=== PATIENT | male | born 1970 | race American Indian/Alaskan Native ===

== ENCOUNTER 2018-07-07 10:56 | Emergency (ER) | payer OTHER ==
[2018-07-07 11:02] VITALS: RESP 18
[2018-07-07] MEDS ORDERED: Sodium Chloride 0.9% 1,000 ML IV ONE (11:32)
[2018-07-07] MEDS ORDERED: Sodium Chloride 0.9% 1,000 ML ONE (11:40)
--- NOTE | 2018-07-07 11:46 | C.PDOC ---
History Of Present Illness 47 year old male presents to ED with complaint of 3 year history of abdominal pain that has worsened over the past several days. Patient states that he has had this belly pain for the past 3 years and has gone to hospitals for it in the past. Patient states he is unable to work because of this pain. Patient has no PSHx and no PMHx. Patient also complains of diarrhea. Patient also notes that 1 month ago he had bloody stool, but it may have been due to the red punch he was drinking. Patient denies vomiting, back pain, nausea, and fever. Time Seen by Provider: 07/07/18 11:11 Chief Complaint (Nursing): Abdominal Pain History Per: Patient History/Exam Limitations: no limitations Onset/Duration Of Symptoms: Days Current Symptoms Are (Timing): Still Present Location Of Pain/Discomfort: Diffuse Radiation Of Pain To:: None Quality Of Discomfort: "Pain" Associated Symptoms: Diarrhea. denies: Fever, Chills, Nausea, Vomiting, Back Pain Exacerbating Factors: Walking Alleviating Factors: None Past Medical History Reviewed: Historical Data, Nursing Documentation, Vital Signs Vital Signs: Last Vital Signs Temp 97.8 F 07/07/18 10:58 Pulse 50 L 07/07/18 10:58 Resp 18 07/07/18 10:58 BP 112/74 07/07/18 10:58 Pulse Ox 100 07/07/18 10:58 - Medical History PMH: Pulmonary Embolism Surgical History: No Surg Hx Family History: States: Unknown Family Hx - Social History Hx Alcohol Use: Yes Hx Substance Use: No - Immunization History Hx Tetanus Toxoid Vaccination: No Hx Pneumococcal Vaccination: No Review Of Systems Constitutional: Negative for: Fever, Chills Gastrointestinal: Positive for: Abdominal Pain, Diarrhea. Negative for: Nausea, Vomiting Genitourinary: Negative for: Dysuria Musculoskeletal: Negative for: Back Pain Physical Exam - Physical Exam Appears: Non-toxic, No Acute Distress Skin: Normal Color, Warm, Dry, No Rash Head: Atraumatic, Normacephalic Eye(s): bilateral: Normal Inspection Oral Mucosa: Moist Throat: No Erythema, No Exudate Neck: Normal ROM, Supple Chest: Symmetrical, No Deformity Cardiovascular: Rhythm Regular, No Friction Rub, No Murmur Respiratory: Normal Breath Sounds, No Accessory Muscle Use, No Rales, No Rhonchi, No Wheezing Gastrointestinal/Abdominal: Soft, No Tenderness, No Distention, No Guarding, No Rebound Back: Normal Inspection, No CVA Tenderness Extremity: Capillary Refill (<2 seconds), No Swelling Neurological/Psych: Oriented x3, Normal Speech, Normal Cognition, Normal Motor ED Course And Treatment - Laboratory Results Result Diagrams: 07/07/18 12:26 07/07/18 12:26 O2 Sat by Pulse Oximetry: 100 (in RA) Pulse Ox Interpretation: Normal - CT Scan/US Abdomen/Pelvis CT Other Rad Studies (CT/US): Interpreted By Me, Read By Radiologist CT/US Interpretation: IMPRESSION: Possible mural thickening and luminal narrowing involving the ascending colon. Questionable intussusception of bowel loops along the ascending colon as well. Recommend repeat examination with oral contrast. Against Medical Advice - AMA Patient Left Against Medical Advice: The patient declines admission to the hospital and wishes to leave the Emergency Department. This action is against my medical advice. This decision was made with informed refusal. The patient was told that admission to the hospital is necessary. Explanation of the reasons why were discussed. The risks of leaving were explained to the patient and include, but are not limited to, worsening of known or currently unknown conditions, permanent disability and from undiagnosed or untreated conditions. The patient has the capacity to make this informed decision and understands my explanation of the current medical problem and risks of leaving. The patient voluntarily accepts these risks and signed an AMA form documenting our conversation. The patient was given the opportunity to ask questions and reconsider. The patient was encouraged to return to the Emergency Department at any time for further care. Medical Decision Making Medical Decision Making: Plan: Abdomen/Pelvis CT ordered for patient CMP CBC UA Patient given Toradol and IV fluids The results were discussed with the patient and was strongly informed to be admitted for surgery consult. The patient states that he is not able to stay and wants to be discharged. Copies of the results were given to the patient. On re-exam, the patient reports improvement of symptoms. Lungs are CTA, heart is RRR, abdomen is soft, non-tender and tolerating PO well. Pt is ambulatory in the ED with steady gait. Follow up with the medical doctor within 1-2 days. Return if worsened. Disposition - Disposition Referrals: [facility] [Outside] [facility] [Outside] Disposition: AGAINST MEDICAL ADVICE Disposition Time: 15:51 Condition: FAIR Additional Instructions: RETURN TO THE ED SOON POSSIBLE IF THERE IS ANY WORSENING. Instructions: Acute Abdomen (Belly Pain), Adult (DC) Forms: [facility] (Czech) - Clinical Impression Clinical Impression: Intussusception, Abdominal pain - PA / RUBY DEVELOPER / Resident Statement MD/DO has reviewed & agrees with the documentation as recorded. (Maty Bynum) - Scribe Statement The provider has reviewed the documentation as recorded by the Scribe (Maty Bynum) All medical record entries made by the Scribe were at my direction and personally dictated by me. I have reviewed the chart and agree that the record accurately reflects my personal performance of the history, physical exam, medical decision making, and the department course for this patient. I have also personally directed, reviewed, and agree with the discharge instructions and disposition.
[2018-07-07 12:34] LABS: WHITE BLOOD COUNT 4.6 K/uL (4.8-10.8)
[2018-07-07 12:46] LABS: HEMOGLOBIN 14.5 g/dL (12.0-18.0); MEAN CORPUSCULAR HEMOGLOBIN 30.6 pg (27.0-31.0); MEAN PLATELET VOLUME 7.9 fL (7.2-11.7); RBC 4.72 Mil/uL (4.40-5.90); RED CELL DISTRIBUTION WIDTH 13.6 % (11.5-14.5)
[2018-07-07 12:47] LABS: ALB/GLOB RATIO 1.4 (1.0-2.1); ALBUMIN 3.9 g/dL (3.5-5.0); ALT/SGPT 15 U/L (21-72); AST/SGOT 17 U/L (17-59); BLOOD UREA NITROGEN 6 mg/dL (9-20); CALCIUM 9.2 mg/dl (8.6-10.4); GFR NON-AFRICAN AMERICAN > 60; LIPASE 108 U/L (23-300)
[2018-07-07 12:59] LABS: URINE BILIRUBIN NEGATIVE (NEGATIVE); URINE BLOOD NEGATIVE (NEGATIVE); URINE CLARITY Clear (Clear); URINE COLOR YELLOW (YELLOW); URINE GLUCOSE (UA) NEGATIVE (Normal); URINE LEUKOCYTE ESTERASE NEGATIVE Leu/uL (Negative); URINE PROTEIN NEGATIVE (NEGATIVE); URINE UROBILINOGEN 0.2 mg/dL (0.2-1.0)
[2018-07-07 13:07] LABS: EOS # 0.1 K/uL (0.0-0.7); LYMPH # 1.5 K/uL (1.0-4.3); MONO # 0.6 K/uL (0.0-0.8); NEUT # 2.4 K/uL (1.8-7.0)
[2018-07-07] MEDS ORDERED: Iodixanol 320 MG/ML 100 ML BOTTLE IV ONE (13:38)
[2018-07-07 14:29] VITALS: BP 115/64; PULSE 44; TEMP 98
--- NOTE | 2018-07-07 15:08 | CT ---
Date of service: 07/07/2018 PROCEDURE: CT Abdomen and Pelvis with contrast HISTORY: lower abd pain, diarrhea COMPARISON: None. TECHNIQUE: Contrast dose: Radiation dose: Total exam DLP = 444.07 mGy-cm. This CT exam was performed using one or more of the following dose reduction techniques: Automated exposure control, adjustment of the mA and/or kV according to patient size, and/or use of iterative reconstruction technique. FINDINGS: LOWER THORAX: Unremarkable. LIVER: Scattered hepatic cysts. GALLBLADDER AND BILE DUCTS: Unremarkable. PANCREAS: Unremarkable. No gross lesion or ductal dilatation. SPLEEN: Unremarkable. ADRENALS: Unremarkable. No mass. KIDNEYS AND URETERS: Unremarkable. No hydronephrosis. No solid mass. VASCULATURE: Unremarkable. No aortic aneurysm. No aortic atherosclerotic calcification or mural plaque present. BOWEL: Possible mural thickening and luminal narrowing involving the ascending colon. Questionable intussusception of bowel loops along the ascending colon as well. Recommend repeat examination with oral contrast. APPENDIX: Normal appendix. PERITONEUM: Unremarkable. No free fluid. No free air. LYMPH NODES: Unremarkable. No enlarged lymph nodes. BLADDER: Unremarkable. REPRODUCTIVE: Unremarkable. BONES: No acute fracture. OTHER FINDINGS: None. IMPRESSION: Possible mural thickening and luminal narrowing involving the ascending colon. Questionable intussusception of bowel loops along the ascending colon as well. Recommend repeat examination with oral contrast.
[2018-07-07 15:18] VITALS: O2SAT 100
== END 2018-07-07 16:20 | disposition left against medical advice (07) ==
LOC: C.ER 10:56
DX: K56.1 Intussusception (principal); R10.9 Unspecified abdominal pain
CPT/HCPCS: 74177; 80053; 81001; 83690; 85025; 96361; 96374; 99284; J1885; J7030; Q9967

== ENCOUNTER 2018-07-08 10:14 | Inpatient (IN) | payer OTHER ==
--- NOTE | 2018-07-08 10:46 | C.PDOC ---
History Of Present Illness 47-year-old male presents to the ED for evaluation of abdominal pain which began several days ago. Patient was evaluated in this ED for similar complaint yesterday and underwent a CT scan with IV contrast only. As per CT results, annita clark was found to have questionable intusseption of bowel loops and was recommended to undergo repeat CT scan with PO contrast. Patient did not wait for surgical consult and signed out against medical advice. Patient returns to the ED today because his pain has persisted. He denies fever, chills, vomiting, diarrhea. Time Seen by Provider: 07/08/18 10:46 Chief Complaint (Nursing): Abdominal Pain History Per: Patient History/Exam Limitations: no limitations Onset/Duration Of Symptoms: Days, Persistent Current Symptoms Are (Timing): Still Present Quality Of Discomfort: "Pain" Associated Symptoms: denies: Fever, Chills, Vomiting, Diarrhea Additional History Per: Patient Past Medical History Reviewed: Historical Data, Nursing Documentation, Vital Signs Vital Signs: Last Vital Signs Temp 98.6 F 07/08/18 10:22 Pulse 72 07/08/18 10:22 Resp 20 07/08/18 10:22 BP 114/60 07/08/18 10:22 Pulse Ox 97 07/08/18 10:22 - Medical History PMH: Pulmonary Embolism Surgical History: No Surg Hx Family History: States: Unknown Family Hx - Social History Hx Alcohol Use: Yes Hx Substance Use: Yes - Immunization History Hx Tetanus Toxoid Vaccination: No Hx Influenza Vaccination: No Hx Pneumococcal Vaccination: No Review Of Systems Constitutional: Negative for: Fever, Chills Gastrointestinal: Positive for: Abdominal Pain. Negative for: Vomiting, Diarrh ea Physical Exam - Physical Exam Appears: Non-toxic, No Acute Distress Skin: Normal Color, Warm, Dry Head: Atraumatic, Normacephalic Eye(s): bilateral: Normal Inspection Oral Mucosa: Moist Neck: Supple Chest: Symmetrical, No Deformity, No Tenderness Cardiovascular: Rhythm Regular, No Murmur Respiratory: Normal Breath Sounds, No Rales, No Rhonchi, No Wheezing Gastrointestinal/Abdominal: Soft, Tenderness (mild, periumbilical ), No Guarding, No Rebound Extremity: Normal ROM, Capillary Refill (less than 2 seconds ) Neurological/Psych: Oriented x3, Normal Speech, Normal Cognition ED Course And Treatment - Laboratory Results Result Diagrams: 07/08/18 11:20 07/08/18 11:20 O2 Sat by Pulse Oximetry: 97 (on RA) Pulse Ox Interpretation: Normal Progress Note: Bloodwork, urinalysis, CT A/P with PO contrast only ordered and reviewed. Protonix IVP and IV Fluids given. Disposition - Disposition Disposition: HOSPITALIZED Disposition Time: 16:04 Condition: FAIR Forms: [facility] (Thai) - Clinical Impression Clinical Impression: Abdominal pain, Mass of cecum - PA / BOOKKEEPING MANAGER / Resident Statement MD/DO has reviewed & agrees with the documentation as recorded. - Scribe Statement The provider has reviewed the documentation as recorded by the Scribe (Emely Berg) All medical record entries made by the Scribe were at my direction and personally dictated by me. I have reviewed the chart and agree that the record accurately reflects my personal performance of the history, physical exam, medical decision making, and the department course for this patient. I have also personally directed, reviewed, and agree with the discharge instructions and disposition. Decision To Admit - Pt Status Changed To: Hospital Disposition Of: Observation - . Bed Request Type: Regular Admitting Physician: Madelaine Koenig Patient Diagnosis: Abdominal pain, Mass of cecum
[2018-07-08] MEDS ORDERED: Sodium Chloride 0.9% 1,000 ML IV STA (10:50)
[2018-07-08] MEDS ORDERED: Iohexol 240 (50 ml) PO STA (10:50)
[2018-07-08 11:02] LABS: VENOUS BLOOD GAS BASE EXCESS 0.3 mmol/L (0.0-2.0); VENOUS BLOOD GAS PCO2 48 mmHg (40-60); VENOUS BLOOD GAS PO2 32 mm/Hg (30-55); VENOUS BLOOD PH 7.35 (7.32-7.43)
[2018-07-08 11:28] LABS: MEAN CELL VOLUME 91.4 fL (80.0-94.0); RBC 4.41 Mil/uL (4.40-5.90); WHITE BLOOD COUNT 3.6 K/uL (4.8-10.8)
[2018-07-08] MEDS ORDERED: Iohexol 240 (50 ml) ONE (11:35)
[2018-07-08 11:36] LABS: HEMOGLOBIN 13.7 g/dL (12.0-18.0); MEAN CORPUSCULAR HGB CONC 33.9 g/dL (33.0-37.0); MEAN PLATELET VOLUME 7.7 fL (7.2-11.7); RED CELL DISTRIBUTION WIDTH 13.4 % (11.5-14.5)
[2018-07-08 11:44] LABS: ALB/GLOB RATIO 1.4 (1.0-2.1); ALBUMIN 3.6 g/dL (3.5-5.0); ALT/SGPT 12 U/L (21-72); AST/SGOT 17 U/L (17-59); BLOOD UREA NITROGEN 6 mg/dL (9-20); CALCIUM 9.1 mg/dl (8.6-10.4); GFR NON-AFRICAN AMERICAN > 60; LIPASE 149 U/L (23-300)
[2018-07-08 12:33] LABS: LYMPH # 0.9 K/uL (1.0-4.3); MONO # 0.3 K/uL (0.0-0.8); NEUT # 2.5 K/uL (1.8-7.0)
[2018-07-08 12:56] LABS: SQUAMOUS EPITHIAL < 1 /hpf (0-5); URINE BILIRUBIN NEGATIVE (NEGATIVE); URINE BLOOD NEGATIVE (NEGATIVE); URINE CLARITY Clear (Clear); URINE COLOR Yellow (YELLOW); URINE GLUCOSE (UA) NORMAL (Normal); URINE LEUKOCYTE ESTERASE NEG Leu/uL (Negative); URINE PROTEIN NEGATIVE (NEGATIVE); URINE UROBILINOGEN NORMAL mg/dL (0.2-1.0)
[2018-07-08 13:14] LABS: BARBITURATES, UR NEGATIVE (NEGATIVE); BENZODIAZEPINES, UR NEGATIVE (NEGATIVE); OPIATES, UR NEGATIVE (NEGATIVE); PHENCYCLIDINE, UR NEGATIVE (NEGATIVE)
--- NOTE | 2018-07-08 15:15 | CT ---
Date of service: 07/08/2018 PROCEDURE: CT Abdomen and Pelvis with contrast HISTORY: Abdominal pain COMPARISON: 07/07/2018. TECHNIQUE: CT scan of the abdomen and pelvis was performed without administration of intravenous contrast. Oral contrast was administered. Coronal and sagittal reformatted images were obtained. Contrast dose: Radiation dose: Total exam DLP = 273.19 mGy-cm. This CT exam was performed using one or more of the following dose reduction techniques: Automated exposure control, adjustment of the mA and/or kV according to patient size, and/or use of iterative reconstruction technique. FINDINGS: LOWER THORAX: The visualized right lung is clear. There is subsegmental atelectasis in the left lung base. LIVER: Normal in size with homogeneous enhancement. There are scattered tiny low-attenuation lesions in the liver too small to characterize on noncontrast CT examination. There is a stable 2.1 cm simple cyst in the subcapsular anterior right hepatic lobe. No gross lesion or ductal dilatation. GALLBLADDER AND BILE DUCTS: Gallbladder is partially contracted. No calcified gallstones, wall thickening or pericholecystic fluid. PANCREAS: Normal in size with homogeneous enhancement. No gross lesion or ductal dilatation. SPLEEN: Normal in size and appearance. ADRENALS: No discrete nodule. KIDNEYS AND URETERS: Normal in size with homogeneous enhancement. There is a stable simple cysts in the upper pole of the left kidney. No hydronephrosis. VASCULATURE: No aortic aneurysm. There are no aortic atherosclerotic calcifications or mural plaque present. BOWEL: Evaluation of the bowel is limited in the absence of oral contrast. The small bowel loops are normal in caliber. There is a large 5.4 x 6.8 x 7.9 cm hyperdense intraluminal mass in the cecum. APPENDIX: Normal appendix. PERITONEUM: No free fluid. No free air. LYMPH NODES: No enlarged lymph nodes. BLADDER: Partially decompressed. REPRODUCTIVE: The prostate gland is normal in size. BONES: No acute fracture. There is mild degenerative disc disease at L5-S1. OTHER FINDINGS: None. IMPRESSION: Large intraluminal mass in the cecum which may represent a large polyp or neoplasm. Histopathologic correlation is recommended.
[2018-07-08] MEDS ORDERED: Morphine 4 MG/ML VIAL ONE (15:49)
--- NOTE | 2018-07-08 16:46 | CP.PCM.HP ---
<Abner Garrett E - Last Filed: 07/08/18 18:03> History of Present Illness - History of Present Illness History of Present Illness: CC: Abdominal Pain HPI: Patient is a 47 year old male with past medical Stage 4 hemorrhoid, sickle cell trait and PE (2011), who presents to the ED with complaints of diffuse intermittent mid-abdominal pain that has been ongoing for 3 years. Patient describes the pain as a 10/10 "punching feeling" that is intermittent and localized to the mid-abdominal and more towards the right side. Patient reports whenever he gets the pain, he exercises (running, jogging, core strengthening) in order to get rid of the pain; "it is like the pain is telling me to run". In addition, patient intermittently takes OTC Tylenol and ASA for pain control. He reports that he has not been able to keep food down regularly for the past 2 years and believes he has lost approximately 20-25 lbs unintentionally over the past 3 years. P. Patient admits to diarrhea (different caliber of stool) every weekend for the past 1 year, especially after meals and noted bloating after intake of spicy foods. Patient admits to intermittent hematochezia (bloody stool and blood in the toilet bowl) and increase urinary urgency. Upon ROS, patient admits to progressive fatigue and dizziness but denies fever, chills, nausea, vomiting, chest pain, palpitations, shortness of breath. Patient states that he was seen at [facility] approximately 2 years ago and nothing was found on exam or diagnostic work-up. 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 Admits to cigarettes use (since age 25, 1/2PPD), occasional marijuana use and ETOH on weekends (Usually wine) Present on Admission - Present on Admission Any Indicators Present on Admission: Yes History of DVT/PE: Yes Review of Systems - Constitutional Constitutional: Fatigue, Weight Loss, Weakness. absent: Chills, Excessive Sweating, Fever, Headache, Increased Appetite - EENT Eyes: absent: Blurred Vision, Change in Vision Nose/Mouth/Throat: absent: Dysphagia - Cardiovascular Cardiovascular: Lightheadedness. absent: Chest Pain, Chest Pain at Rest, Dyspne a, Dyspnea on Exertion, Orthopnea, Palpitations - Gastrointestinal Gastrointestinal: Abdominal Pain, Bloating, Change in Bowel Habits, Change in Stool Character, Diarrhea, Hematochezia. absent: Excessive Flatus, Fecal Incontinence, Hematemesis, Nausea, Odynophagia, Vomiting - Genitourinary Genitourinary: Urinary Urgency - Musculoskeletal Musculoskeletal: absent: Back Pain, Joint Swelling, Numbness, Stiffness, Tingling - Integumentary Integumentary: absent: Jaundice - Neurological Neurological: Dizziness, Weakness. absent: Syncope - Endocrine Endocrine: Fatigue. absent: Palpitations Past Patient History - Past Social History Smoking Status: Light Smoker < 10 Cigarettes Daily - PULMONARY Hx Pulmonary Embolism: Yes - GASTROINTESTINAL Hx Hemorrhoids: Yes Other/Comment: abdominal pain x 3yrs - PSYCHIATRIC Hx Substance Use: Yes - SURGICAL HISTORY Hx Surgeries: Yes Hx Herniorrhaphy: Yes - ANESTHESIA Hx Anesthesia: Yes Hx Anesthesia Reactions: No Meds Allergies/Adverse Reactions: Allergies Allergy/AdvReac Type Severity Reaction Status Date / Time No Known Allergies Allergy Verified 07/07/18 11:02 Physical Exam - Constitutional Appears: Non-toxic, No Acute Distress - Head Exam Head Exam: ATRAUMATIC, NORMAL INSPECTION - Eye Exam Eye Exam: EOMI, Normal appearance. absent: Scleral icterus Pupil Exam: NORMAL ACCOMODATION - ENT Exam ENT Exam: Mucous Membranes Moist - Respiratory Exam Respiratory Exam: Clear to Auscultation Bilateral, NORMAL BREATHING PATTERN. absent: Decreased Breath Sounds, Prolonged Expiratory Phase, Rales, Rhonchi, Wheezes, Respiratory Distress - Cardiovascular Exam Cardiovascular Exam: REGULAR RHYTHM, +S1, +S2. absent: Tachycardia, Systolic Murmur - GI/Abdominal Exam GI & Abdominal Exam: Normal Bowel Sounds, Soft, Tenderness Additional comments: Tenderness to palpation of the mid-abdomen (R>L) with mild guarding - Rectal Exam Rectal Exam: absent: Bloody Stool, Hemorrhoids, Fecal Impaction - Extremities Exam Extremities exam: Positive for: normal inspection. Negative for: calf tenderness, pedal edema - Back Exam Back exam: NORMAL INSPECTION - Neurological Exam Neurological exam: Alert, Normal Gait, Oriented x3 - Psychiatric Exam Psychiatric exam: Normal Affect, Normal Mood - Skin Skin Exam: Normal Color Results - Vital Signs Recent Vital Signs: Last Vital Signs Temp 98.2 F 07/08/18 16:41 Pulse 62 07/08/18 16:46 Resp 16 07/08/18 16:46 BP 124/82 07/08/18 16:46 Pulse Ox 100 07/08/18 16:46 - Labs Result Diagrams: 07/08/18 11:20 07/08/18 11:20 Labs: Laboratory Results - last 24 hr 07/08/18 07/08/18 07/08/18 10:55 11:20 11:20 WBC 3.6 L RBC 4.41 Hgb 13.7 Hct 40.3 MCV 91.4 MCH 31.0 MCHC 33.9 RDW 13.4 Plt Count 211 MPV 7.7 Neut % (Auto) 68.0 Lymph % (Auto) 24.0 [place] % (Auto) 8.0 Eos % (Auto) 0.0 Baso % (Auto) 0.0 Neut # (Auto) 2.5 Lymph # (Auto) 0.9 L [place] # (Auto) 0.3 Eos # (Auto) 0.0 Baso # (Auto) 0.0 pO2 32 VBG pH 7.35 VBG pCO2 48 VBG HCO3 24.1 VBG Total CO2 28.0 VBG O2 Sat (Calc) 72.9 H VBG Base Excess 0.3 VBG Potassium 3.6 Sodium 140.0 140 Chloride 109.0 H 107 Glucose 81 Lactate 1.1 Potassium 4.1 Carbon Dioxide 30 Anion Gap 7 L BUN 6 L Creatinine 0.8 Est GFR ( Amer) > 60 Est GFR (Non-Af Amer) > 60 Random Glucose 80 Calcium 9.1 Total Bilirubin 0.7 AST 17 ALT 12 L Alkaline Phosphatase 56 Total Protein 6.1 L Albumin 3.6 Globulin 2.5 Albumin/Globulin Ratio 1.4 Lipase 149 Venous Blood Potassium 3.6 Urine Color Urine Clarity Urine pH Ur Specific [place] Urine Protein Urine Glucose (UA) Urine Ketones Urine Blood Urine Nitrate Urine Bilirubin Urine Urobilinogen Ur Leukocyte Esterase Urine WBC (Auto) Ur Squamous Epith Cells Urine Opiates Screen Urine Methadone Screen Ur Barbiturates Screen Ur Phencyclidine Scrn Ur Amphetamines Screen U Benzodiazepines Scrn U Oth Cocaine Metabols U Cannabinoids Screen 07/08/18 07/08/18 12:48 12:48 WBC RBC Hgb Hct MCV MCH MCHC RDW Plt Count MPV Neut % (Auto) Lymph % (Auto) [place] % (Auto) Eos % (Auto) Baso % (Auto) Neut # (Auto) Lymph # (Auto) [place] # (Auto) Eos # (Auto) Baso # (Auto) pO2 VBG pH VBG pCO2 VBG HCO3 VBG Total CO2 VBG O2 Sat (Calc) VBG Base Excess VBG Potassium Sodium Chloride Glucose Lactate Potassium Carbon Dioxide Anion Gap BUN Creatinine Est GFR ( Amer) Est GFR (Non-Af Amer) Random Glucose Calcium Total Bilirubin AST ALT Alkaline Phosphatase Total Protein Albumin Globulin Albumin/Globulin Ratio Lipase Venous Blood Potassium Urine Color Yellow Urine Clarity Clear Urine pH 6.0 Ur Specific [place] 1.008 Urine Protein Negative Urine Glucose (UA) Normal Urine Ketones Negative Urine Blood Negative Urine Nitrate Negative Urine Bilirubin Negative Urine Urobilinogen Normal Ur Leukocyte Esterase Neg Urine WBC (Auto) 1 Ur Squamous Epith Cells < 1 Urine Opiates Screen Negative Urine Methadone Screen Negative Ur Barbiturates Screen Negative Ur Phencyclidine Scrn Negative Ur Amphetamines Screen Negative U Benzodiazepines Scrn Negative U Oth Cocaine Metabols Negative U Cannabinoids Screen Positive H Assessment & Plan (1) Mass of cecum Assessment and Plan: Consultation: - Surgery, Dr. Haskins--> Help appreciated * Management as per recommendation Imaging/Lab: * Abdomen/Pelvis CT with PO contrast (07/08/18): Large intraluminal mass in the cecum which may represent a large polyp or neoplasm. Histopathologic correlation is recommended. * Abdomen/Pelvis CT with IV contrast (07/07/18): Possible mural thickening and luminal narrowing involving the ascending colon. Questionable intussusception of bowel loops along the ascending colon as well. Recommend repeat examination with oral contrast. * Lipase (WNL) * F/u CEA Status: Acute (2) Abdominal pain Assessment and Plan: Secondary to cecal mass Status: Acute (3) Hematochezia Assessment and Plan: Stool Occult (07/08/18): Negative Status: Acute (4) Prophylactic measure Assessment and Plan: GI: Not indicated DVT: SCDs, chemical agent initiation in anticipation of possible surgical intervention All plans and management discussed with Dr. Gardner Status: Acute <Bogdan Gardner H - Last Filed: 07/09/18 07:21> Results - Vital Signs Recent Vital Signs: Last Vital Signs Temp 97.8 F 07/08/18 23:35 Pulse 49 L 07/09/18 00:22 Resp 20 07/08/18 23:35 BP 107/61 07/08/18 23:35 Pulse Ox 98 07/08/18 23:35 - Labs Result Diagrams: 07/08/18 11:20 07/08/18 11:20 Labs: Laboratory Results - last 24 hr 07/08/18 07/08/18 07/08/18 10:55 11:20 11:20 WBC 3.6 L RBC 4.41 Hgb 13.7 Hct 40.3 MCV 91.4 MCH 31.0 MCHC 33.9 RDW 13.4 Plt Count 211 MPV 7.7 Neut % (Auto) 68.0 Lymph % (Auto) 24.0 [place] % (Auto) 8.0 Eos % (Auto) 0.0 Baso % (Auto) 0.0 Neut # (Auto) 2.5 Lymph # (Auto) 0.9 L [place] # (Auto) 0.3 Eos # (Auto) 0.0 Baso # (Auto) 0.0 pO2 32 VBG pH 7.35 VBG pCO2 48 VBG HCO3 24.1 VBG Total CO2 28.0 VBG O2 Sat (Calc) 72.9 H VBG Base Excess 0.3 VBG Potassium 3.6 Sodium 140.0 140 Chloride 109.0 H 107 Glucose 81 Lactate 1.1 Potassium 4.1 Carbon Dioxide 30 Anion Gap 7 L BUN 6 L Creatinine 0.8 Est GFR ( Amer) > 60 Est GFR (Non-Af Amer) > 60 Random Glucose 80 Calcium 9.1 Total Bilirubin 0.7 AST 17 ALT 12 L Alkaline Phosphatase 56 Total Protein 6.1 L Albumin 3.6 Globulin 2.5 Albumin/Globulin Ratio 1.4 Lipase 149 Venous Blood Potassium 3.6 Urine Color Urine Clarity Urine pH Ur Specific [place] Urine Protein Urine Glucose (UA) Urine Ketones Urine Blood Urine Nitrate Urine Bilirubin Urine Urobilinogen Ur Leukocyte Esterase Urine WBC (Auto) Ur Squamous Epith Cells Stool Occult Blood Urine Opiates Screen Urine Methadone Screen Ur Barbiturates Screen Ur Phencyclidine Scrn Ur Amphetamines Screen U Benzodiazepines Scrn U Oth Cocaine Metabols U Cannabinoids Screen 07/08/18 07/08/18 07/08/18 12:48 12:48 17:23 WBC RBC Hgb Hct MCV MCH MCHC RDW Plt Count MPV Neut % (Auto) Lymph % (Auto) [place] % (Auto) Eos % (Auto) Baso % (Auto) Neut # (Auto) Lymph # (Auto) [place] # (Auto) Eos # (Auto) Baso # (Auto) pO2 VBG pH VBG pCO2 VBG HCO3 VBG Total CO2 VBG O2 Sat (Calc) VBG Base Excess VBG Potassium Sodium Chloride Glucose Lactate Potassium Carbon Dioxide Anion Gap BUN Creatinine Est GFR ( Amer) Est GFR (Non-Af Amer) Random Glucose Calcium Total Bilirubin AST ALT Alkaline Phosphatase Total Protein Albumin Globulin Albumin/Globulin Ratio Lipase Venous Blood Potassium Urine Color Yellow Urine Clarity Clear Urine pH 6.0 Ur Specific [place] 1.008 Urine Protein Negative Urine Glucose (UA) Normal Urine Ketones Negative Urine Blood Negative Urine Nitrate Negative Urine Bilirubin Negative Urine Urobilinogen Normal Ur Leukocyte Esterase Neg Urine WBC (Auto) 1 Ur Squamous Epith Cells < 1 Stool Occult Blood Negative Urine Opiates Screen Negative Urine Methadone Screen Negative Ur Barbiturates Screen Negative Ur Phencyclidine Scrn Negative Ur Amphetamines Screen Negative U Benzodiazepines Scrn Negative U Oth Cocaine Metabols Negative U Cannabinoids Screen Positive H Attending/Attestation - Attestation I have personally seen and examined this patient.: Yes I have fully participated in the care of the patient.: Yes I have reviewed all pertinent clinical information: Yes Notes (Text): 07/09/18 07:14 Medical attending: Patient was seen and examined by me. Agree with the above note by the resident The patient was previously in the ER, left AMA but shortly thereafter returned because of the ongoing pain The patient on CT with PO contrast has a concerning for a large cecum mass. He tells us he believes he has been loosing weight as well as well as intermittently seeing blood in the stools as well. We will need to get surgery and probably GI evaluation as well. The patient from what he tells us does not have a family history of colon cancer. We will check stool studies, WBC, Occult blood, OP, and also CEA, 19-9 Bogdan Gardner
--- NOTE | 2018-07-08 17:08 | CP.PCM.CON ---
<Jasmyne House - Last Filed: 07/08/18 22:57> History of Present Illness - History of Present Illness History of Present Illness: General Surgery: [place] Patient is a 47 M with PMH presenting with chronic abdominal pain x 3 years, recent weight loss. Patient has never had colonoscopy. Patient denies f/c, n/v, decreased appetite and changes in stool. he denies blood in stool. 12 point ROS otherwise negative PMH:denies PSH: hemorrhoidectomy Meds: none Social: marijuana, denies ETOH, tobacco Famhx: HTN, DM ALL:nkda PMD: none Review of Systems - Review of Systems All systems: reviewed and no additional remarkable complaints except (as per HPI) Past Patient History - Past Social History Smoking Status: Light Smoker < 10 Cigarettes Daily - PULMONARY Hx Pulmonary Embolism: Yes - GASTROINTESTINAL Hx Hemorrhoids: Yes Other/Comment: abdominal pain x 3yrs - PSYCHIATRIC Hx Substance Use: Yes - SURGICAL HISTORY Hx Surgeries: Yes Hx Herniorrhaphy: Yes - ANESTHESIA Hx Anesthesia: Yes Hx Anesthesia Reactions: No Meds Allergies/Adverse Reactions: Allergies Allergy/AdvReac Type Severity Reaction Status Date / Time No Known Allergies Allergy Verified 07/07/18 11:02 Physical Exam - Constitutional Appears: Well, Non-toxic, No Acute Distress - Head Exam Head Exam: ATRAUMATIC, NORMOCEPHALIC - Eye Exam Eye Exam: EOMI - ENT Exam ENT Exam: Mucous Membranes Moist - Respiratory Exam Respiratory Exam: NORMAL BREATHING PATTERN - Cardiovascular Exam Cardiovascular Exam: REGULAR RHYTHM - GI/Abdominal Exam GI & Abdominal Exam: Soft. absent: Guarding, Rigid, Tenderness - Extremities Exam Extremities exam: Negative for: calf tenderness, pedal edema - Neurological Exam Neurological exam: Alert, Oriented x3 - Psychiatric Exam Psychiatric exam: Normal Affect, Normal Mood - Skin Skin Exam: Dry, Intact, Normal Color, Warm Results - Vital Signs Recent Vital Signs: Last Vital Signs Temp 98.2 F 07/08/18 16:41 Pulse 62 07/08/18 16:46 Resp 16 07/08/18 16:46 BP 124/82 07/08/18 16:46 Pulse Ox 100 07/08/18 16:46 - Labs Result Diagrams: 07/08/18 11:20 07/08/18 11:20 Labs: Laboratory Results - last 24 hr 07/08/18 07/08/1807/08/19 10:55 11:20 11:20 WBC 3.6 L RBC 4.41 Hgb 13.7 Hct 40.3 MCV 91.4 MCH 31.0 MCHC 33.9 RDW 13.4 Plt Count 211 MPV 7.7 Neut % (Auto) 68.0 Lymph % (Auto) 24.0 [place] % (Auto) 8.0 Eos % (Auto) 0.0 Baso % (Auto) 0.0 Neut # (Auto) 2.5 Lymph # (Auto) 0.9 L [place] # (Auto) 0.3 Eos # (Auto) 0.0 Baso # (Auto) 0.0 pO2 32 VBG pH 7.35 VBG pCO2 48 VBG HCO3 24.1 VBG Total CO2 28.0 VBG O2 Sat (Calc) 72.9 H VBG Base Excess 0.3 VBG Potassium 3.6 Sodium 140.0 140 Chloride 109.0 H 107 Glucose 81 Lactate 1.1 Potassium 4.1 Carbon Dioxide 30 Anion Gap 7 L BUN 6 L Creatinine 0.8 Est GFR ( Amer) > 60 Est GFR (Non-Af Amer) > 60 Random Glucose 80 Calcium 9.1 Total Bilirubin 0.7 AST 17 ALT 12 L Alkaline Phosphatase 56 Total Protein 6.1 L Albumin 3.6 Globulin 2.5 Albumin/Globulin Ratio 1.4 Lipase 149 Venous Blood Potassium 3.6 Urine Color Urine Clarity Urine pH Ur Specific [place] Urine Protein Urine Glucose (UA) Urine Ketones Urine Blood Urine Nitrate Urine Bilirubin Urine Urobilinogen Ur Leukocyte Esterase Urine WBC (Auto) Ur Squamous Epith Cells Urine Opiates Screen Urine Methadone Screen Ur Barbiturates Screen Ur Phencyclidine Scrn Ur Amphetamines Screen U Benzodiazepines Scrn U Oth Cocaine Metabols U Cannabinoids Screen 07/08/18 07/08/18 12:48 12:48 WBC RBC Hgb Hct MCV MCH MCHC RDW Plt Count MPV Neut % (Auto) Lymph % (Auto) [place] % (Auto) Eos % (Auto) Baso % (Auto) Neut # (Auto) Lymph # (Auto) [place] # (Auto) Eos # (Auto) Baso # (Auto) pO2 VBG pH VBG pCO2 VBG HCO3 VBG Total CO2 VBG O2 Sat (Calc) VBG Base Excess VBG Potassium Sodium Chloride Glucose Lactate Potassium Carbon Dioxide Anion Gap BUN Creatinine Est GFR ( Amer) Est GFR (Non-Af Amer) Random Glucose Calcium Total Bilirubin AST ALT Alkaline Phosphatase Total Protein Albumin Globulin Albumin/Globulin Ratio Lipase Venous Blood Potassium Urine Color Yellow Urine Clarity Clear Urine pH 6.0 Ur Specific [place] 1.008 Urine Protein Negative Urine Glucose (UA) Normal Urine Ketones Negative Urine Blood Negative Urine Nitrate Negative Urine Bilirubin Negative Urine Urobilinogen Normal Ur Leukocyte Esterase Neg Urine WBC (Auto) 1 Ur Squamous Epith Cells < 1 Urine Opiates Screen Negative Urine Methadone Screen Negative Ur Barbiturates Screen Negative Ur Phencyclidine Scrn Negative Ur Amphetamines Screen Negative U Benzodiazepines Scrn Negative U Oth Cocaine Metabols Negative U Cannabinoids Screen Positive H Assessment & Plan - Assessment and Plan (Free Text) Assessment: 47 yr old male with large intraluminal cecal mass/polyp on CT scan Plan: - pain control - f/u CEA - SCD - encourage OOB and ambulation - recommend GI consult for colonoscopy and possible biospy - discussed with Dr. Pretty, PGY 1 - Date & Time Date: 07/08/18 Time: 17:08 <Darrius Haskins N - Last Filed: 07/09/18 08:05> Meds - Medications Medications: Current Medications Lactated Ringer's (Lactated Ringer's) 1,000 mls @ 100 mls/hr IV .Q10H LEXI Last Admin: 07/09/18 06:24 Dose: 100 mls/hr Ketorolac Tromethamine (Toradol) 30 mg IVP Q6 PRN PRN Reason: Pain, Mild (1-3) Last Admin: 07/08/18 21:36 Dose: 30 mg Morphine Sulfate (Morphine) 2 mg IV Q6 PRN PRN Reason: Pain, moderate (4-7) Pantoprazole Sodium (Protonix Inj) 40 mg IVP DAILY [facility] Pneumococcal Polyvalent Vaccine (Pneumovax 23 Vaccine) 0.5 ml IM .ONCE ONE Stop: 07/10/18 10:01 Results - Vital Signs Recent Vital Signs: Last Vital Signs Temp 97.8 F 07/08/18 23:35 Pulse 46 L 07/09/18 07:08 Resp 20 07/08/18 23:35 BP 107/61 07/08/18 23:35 Pulse Ox 98 07/08/18 23:35 - Labs Result Diagrams: 07/09/18 07:27 04/18/19 07:27 Labs: Laboratory Results - last 24 hr 07/08/18 07/08/18 07/08/18 10:55 11:20 11:20 WBC 3.6 L RBC 4.41 Hgb 13.7 Hct 40.3 MCV 91.4 MCH 31.0 MCHC 33.9 RDW 13.4 Plt Count 211 MPV 7.7 Neut % (Auto) 68.0 Lymph % (Auto) 24.0 [place] % (Auto) 8.0 Eos % (Auto) 0.0 Baso % (Auto) 0.0 Neut # (Auto) 2.5 Lymph # (Auto) 0.9 L [place] # (Auto) 0.3 Eos # (Auto) 0.0 Baso # (Auto) 0.0 pO2 32 VBG pH 7.35 VBG pCO2 48 VBG HCO3 24.1 VBG Total CO2 28.0 VBG O2 Sat (Calc) 72.9 H VBG Base Excess 0.3 VBG Potassium 3.6 Sodium 140.0 140 Chloride 109.0 H 107 Glucose 81 Lactate 1.1 Potassium 4.1 Carbon Dioxide 30 Anion Gap 7 L BUN 6 L Creatinine 0.8 Est GFR ( Amer) > 60 Est GFR (Non-Af Amer) > 60 Random Glucose 80 Calcium 9.1 Phosphorus Magnesium Total Bilirubin 0.7 AST 17 ALT 12 L Alkaline Phosphatase 56 Total Protein 6.1 L Albumin 3.6 Globulin 2.5 Albumin/Globulin Ratio 1.4 Lipase 149 Venous Blood Potassium 3.6 Urine Color Urine Clarity Urine pH Ur Specific [place] Urine Protein Urine Glucose (UA) Urine Ketones Urine Blood Urine Nitrate Urine Bilirubin Urine Urobilinogen Ur Leukocyte Esterase Urine WBC (Auto) Ur Squamous Epith Cells Stool Occult Blood Urine Opiates Screen Urine Methadone Screen Ur Barbiturates Screen Ur Phencyclidine Scrn Ur Amphetamines Screen U Benzodiazepines Scrn U Oth Cocaine Metabols U Cannabinoids Screen 07/08/18 07/08/18 07/08/18 12:48 12:48 17:23 WBC RBC Hgb Hct MCV MCH MCHC RDW Plt Count MPV Neut % (Auto) Lymph % (Auto) [place] % (Auto) Eos % (Auto) Baso % (Auto) Neut # (Auto) Lymph # (Auto) [place] # (Auto) Eos # (Auto) Baso # (Auto) pO2 VBG pH VBG pCO2 VBG HCO3 VBG Total CO2 VBG O2 Sat (Calc) VBG Base Excess VBG Potassium Sodium Chloride Glucose Lactate Potassium Carbon Dioxide Anion Gap BUN Creatinine Est GFR ( Amer) Est GFR (Non-Af Amer) Random Glucose Calcium Phosphorus Magnesium Total Bilirubin AST ALT Alkaline Phosphatase Total Protein Albumin Globulin Albumin/Globulin Ratio Lipase Venous Blood Potassium Urine Color Yellow Urine Clarity Clear Urine pH 6.0 Ur Specific [place] 1.008 Urine Protein Negative Urine Glucose (UA) Normal Urine Ketones Negative Urine Blood Negative Urine Nitrate Negative Urine Bilirubin Negative Urine Urobilinogen Normal Ur Leukocyte Esterase Neg Urine WBC (Auto) 1 Ur Squamous Epith Cells < 1 Stool Occult Blood Negative Urine Opiates Screen Negative Urine Methadone Screen Negative Ur Barbiturates Screen Negative Ur Phencyclidine Scrn Negative Ur Amphetamines Screen Negative U Benzodiazepines Scrn Negative U Oth Cocaine Metabols Negative U Cannabinoids Screen Positive H 07/09/18 07/09/18 07:27 07:27 WBC 2.5 L RBC 4.35 L Hgb 13.5 Hct 39.7 MCV 91.4 MCH 31.0 MCHC 33.9 RDW 13.4 Plt Count 196 MPV 7.8 Neut % (Auto) Lymph % (Auto) [place] % (Auto) Eos % (Auto) Baso % (Auto) Neut # (Auto) Lymph # (Auto) [place] # (Auto) Eos # (Auto) Baso # (Auto) pO2 VBG pH VBG pCO2 VBG HCO3 VBG Total CO2 VBG O2 Sat (Calc) VBG Base Excess VBG Potassium Sodium 137 Chloride 107 Glucose Lactate Potassium 3.8 Carbon Dioxide 27 Anion Gap 6 L BUN 7 L Creatinine 0.7 L Est GFR ( Amer) > 60 Est GFR (Non-Af Amer) > 60 Random Glucose 84 Calcium 8.8 Phosphorus 3.1 Magnesium 1.9 Total Bilirubin 0.9 AST 20 ALT 21 D Alkaline Phosphatase 59 Total Protein 5.7 L Albumin 3.4 L Globulin 2.3 Albumin/Globulin Ratio 1.4 Lipase Venous Blood Potassium Urine Color Urine Clarity Urine pH Ur Specific [place] Urine Protein Urine Glucose (UA) Urine Ketones Urine Blood Urine Nitrate Urine Bilirubin Urine Urobilinogen Ur Leukocyte Esterase Urine WBC (Auto) Ur Squamous Epith Cells Stool Occult Blood Urine Opiates Screen Urine Methadone Screen Ur Barbiturates Screen Ur Phencyclidine Scrn Ur Amphetamines Screen U Benzodiazepines Scrn U Oth Cocaine Metabols U Cannabinoids Screen Assessment & Plan - Assessment and Plan (Free Text) Plan: All medical record entries made by the resident were at my direction. I have reviewed the chart and agree that the record accurately reflects my personal performance of the history, physical exam, and medical decision making.
[2018-07-08] MEDS ORDERED: Pneumococcal 23-Valent Vaccine IM ONE (18:55)
[2018-07-09] MEDS: Lactated Ringer's 1,000 ML IV SCH ×2 (06:24→17:48)
[2018-07-09 07:41] LABS: HEMOGLOBIN 13.5 g/dL (12.0-18.0); MEAN CELL VOLUME 91.4 fL (80.0-94.0); MEAN CORPUSCULAR HGB CONC 33.9 g/dL (33.0-37.0); MEAN PLATELET VOLUME 7.8 fL (7.2-11.7); PLATELET COUNT 196 K/uL (130-400); RBC 4.35 Mil/uL (4.40-5.90); RED CELL DISTRIBUTION WIDTH 13.4 % (11.5-14.5); WHITE BLOOD COUNT 2.5 K/uL (4.8-10.8)
[2018-07-09 08:01] LABS: ALB/GLOB RATIO 1.4 (1.0-2.1); ALBUMIN 3.4 g/dL (3.5-5.0); ALT/SGPT 21 U/L (21-72); AST/SGOT 20 U/L (17-59); BLOOD UREA NITROGEN 7 mg/dL (9-20); CALCIUM 8.8 mg/dl (8.6-10.4); GFR NON-AFRICAN AMERICAN > 60
--- NOTE | 2018-07-09 09:05 | CP.PCM.PN ---
<Kashif Clements - Last Filed: 07/09/18 17:54> Subjective - Date & Time of Evaluation Date of Evaluation: 07/09/18 Time of Evaluation: 09:04 - Subjective Subjective: PGY-1 Medicine progress note for Dr Bogdan Gardner Patient is seen and examined at bedside. States abdominal pain comes on and off, but is somewhat improved since admission, describes pain as a "punching" feeling, denies fever, chills, chest pain, sob, n/v/d/c or urinary problems. denies bloody stools. Objective - Vital Signs/Intake and Output Vital Signs (last 24 hours): Temp Pulse Resp BP Pulse Ox 97.7 F 44 L 20 114/72 98 07/09/18 08:29 07/09/18 08:29 07/09/18 08:29 07/09/18 08:29 07/09/18 08:29 - Medications Medications: Current Medications Lactated Ringer's (Lactated Ringer's) 1,000 mls @ 100 mls/hr IV .Q10H [facility] Last Admin: 07/09/18 06:24 Dose: 100 mls/hr Ketorolac Tromethamine (Toradol) 30 mg IVP Q6 PRN PRN Reason: Pain, Mild (1-3) Last Admin: 07/08/18 21:36 Dose: 30 mg Morphine Sulfate (Morphine) 2 mg IV Q6 PRN PRN Reason: Pain, moderate (4-7) Pantoprazole Sodium (Protonix Inj) 40 mg IVP DAILY [facility] Pneumococcal Polyvalent Vaccine (Pneumovax 23 Vaccine) 0.5 ml IM .ONCE ONE Stop: 07/10/18 10:01 - Labs Labs: 07/09/18 07:27 07/09/18 07:27 - Constitutional Appears: Non-toxic, No Acute Distress - Head Exam Head Exam: ATRAUMATIC, NORMAL INSPECTION, NORMOCEPHALIC - Eye Exam Eye Exam: EOMI, Normal appearance - ENT Exam ENT Exam: Mucous Membranes Moist, Normal Exam - Neck Exam Neck Exam: Full ROM, Normal Inspection - Respiratory Exam Respiratory Exam: Clear to Ausculation Bilateral, NORMAL BREATHING PATTERN. absent: Rales, Rhonchi, Wheezes - Cardiovascular Exam Cardiovascular Exam: REGULAR RHYTHM, +S1, +S2 - GI/Abdominal Exam GI & Abdominal Exam: Soft, Normal Bowel Sounds. absent: Distended, Guarding, Tenderness, Pulsatile Mass - Extremities Exam Extremities Exam: Full ROM, Normal Capillary Refill. absent: Pedal Edema, Tenderness - Back Exam Back Exam: Full ROM, NORMAL INSPECTION. absent: CVA tenderness (L), CVA tenderness (R), paraspinal tenderness, tenderness - Neurological Exam Neurological Exam: Alert, Awake, Oriented x3 - Psychiatric Exam Psychiatric exam: Normal Affect, Normal Mood - Skin Skin Exam: Dry, Normal Color, Warm Assessment and Plan - Assessment and Plan (Free Text) Assessment: Patient is a 47 year old male with no past medical history, complaining of diffuse abdominal pain, bloody stool last week and weight loss, admitted for CT findings of large intraluminal cecal mass/polyp Plan: Mass of cecum Abdomen/Pelvis CT with PO contrast (07/08/18): Large intraluminal mass in the cecum which may represent a large polyp or neoplasm. Histopathologic correlation is recommended. Abdomen/Pelvis CT with IV contrast (07/07/18): Possible mural thickening and luminal narrowing involving the ascending colon. Questionable intussusception of bowel loops along the ascending colon as well. Recommend repeat examination with oral contrast. 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 Haskins- f/u GI recs and colonoscopy, plan for right hemicolectomy on Thursday 07/13 Abdominal pain Secondary to cecal mass Toradol 30mg IBP Q6 PRN Hematochezia Does not report blood in stools at this time, last time was one week ago Stool Occult (07/08/18): Negative Prophylactic measure DVT: SCDs GI: protonix 40mg IVP QD encourage OOB and ambulation LR @ 100 mls/hr Dispo: patient to go for colonoscopy tomorrow, NPO after midnight. As per surgery, planning for right hemicolectomy on 07/13, will follow up surgery and GI recs. Plan discussed with Dr Kendra Clements, PGY-1 <Bogdan Gardner - Last Filed: 07/09/18 18:45> Objective - Vital Signs/Intake and Output Vital Signs (last 24 hours): Temp Pulse Resp BP Pulse Ox 97.7 F 47 L 20 146/86 100 07/09/18 08:29 07/09/18 16:59 07/09/18 16:00 07/09/18 16:00 07/09/18 16:00 - Medications Medications: Current Medications Lactated Ringer's (Lactated Ringer's) 1,000 mls @ 100 mls/hr IV .Q10H [facility] Last Admin: 07/09/18 17:48 Dose: Not Given Ketorolac Tromethamine (Toradol) 30 mg IVP Q6 PRN PRN Reason: Pain, Mild (1-3) Last Admin: 07/08/18 21:36 Dose: 30 mg Morphine Sulfate (Morphine) 2 mg IV Q6 PRN PRN Reason: Pain, moderate (4-7) Pantoprazole Sodium (Protonix Inj) 40 mg IVP DAILY [facility] Last Admin: 07/09/18 10:04 Dose: 40 mg Pneumococcal Polyvalent Vaccine (Pneumovax 23 Vaccine) 0.5 ml IM .ONCE ONE Stop: 07/10/18 10:01 - Labs Labs: 07/09/18 07:27 07/09/18 07:27 PT 12.8 SECONDS (9.7-12.2) H 07/09/18 13:55 INR 1.2 07/09/18 13:55 Attending/Attestation - Attestation I have personally seen and examined this patient.: Yes I have fully participated in the care of the patient.: Yes I have reviewed all pertinent clinical information, including history, physical exam and plan: Yes Notes (Text): 07/09/18 18:42 Medical attending: Patient was seen and examined by me. Agree with the above note by the resident The patient was not in any acute distress today. The patient was with family member at bedside. He will be taking the GoLyte prep tonight in preparation for colonscopy tomorrow. There are also plans for possible surgical intervention this comming Friday as well. Also still pending the CEA as of this afternoon as well. When we came and saw the patient today he had returned from CT scan of the chest The patient reported he had only minimal lower quadrant pain when we examined him today Hgb is 13 this morning thank you Bogdan Gardner 07/09/18 18:45
[2018-07-09] MEDS ORDERED: Iodixanol 320 MG/ML 100 ML BOTTLE IV ONE (09:31)
--- NOTE | 2018-07-09 10:09 | CP.PCM.CON ---
<Edward Cortez - Last Filed: 07/09/18 12:05> History of Present Illness - History of Present Illness History of Present Illness: PGY6 GI Fellow Consult Note Patient is a 47 year old -Italian male with history significant for DVT/PE s/p Coumadin therapy, internal hemorrhoids who presented to the ED for abdominal pain. States he has suffered with intermittent, stabbing, RLQ abdominal pain for the last 3 years. Symptoms would last minutes to hours when they began but he did not use any medications to alleviate symptoms or present for medical evaluation. In the last month, symptoms have worsened significantly in intensity and frequency with near-daily severe pain over the last 10-14 days. Patient admits to weekly episodes of diarrhea, infrequent (4-5 episodes) of rectal bleeding over the last 3 years which he attributed to hemorrhoids/diet, and recent weight loss of over the last month. Denies melena, nausea, vomiting, fever, chills. As symptoms had intensified in the last week, he opted to come to the ED for further evaluation. Initial CT scan of the Abdomen/Pelvis with IV contrast only revealed a question of intussusception of the ascending colon and cystic liver lesions. Patient left AMA as symptoms improved with IV Toradol but returned a day later as symptoms recurred. Repeat CT with oral contrast only showed an intraluminal cecal lesion and low attenuation liver lesions. 12 system ROS performed and otherwise negative PMHx: DVT/PE, Internal hemorrhoids PSHx: Surgical hemorrhoidectomy (2017) FHx: Father - DM, ESRD/HD, HTN; no family history of GI malignancy Social: +Tobacco use (1/4-1/ ppd x 22 years), +EtOH use weekly, +marijuana use Endo: No prior endoscopic evaluations Past Patient History - Past Social History Smoking Status: Light Smoker < 10 Cigarettes Daily - PULMONARY Hx Pulmonary Embolism: Yes - GASTROINTESTINAL Hx Hemorrhoids: Yes Other/Comment: abdominal pain x 3yrs - PSYCHIATRIC Hx Substance Use: Yes - SURGICAL HISTORY Hx Surgeries: Yes Hx Herniorrhaphy: Yes - ANESTHESIA Hx Anesthesia: Yes Hx Anesthesia Reactions: No Meds Allergies/Adverse Reactions: Allergies Allergy/AdvReac Type Severity Reaction Status Date / Time No Known Allergies Allergy Verified 07/07/18 11:02 - Medications Medications: Current Medications Lactated Ringer's (Lactated Ringer's) 1,000 mls @ 100 mls/hr IV .Q10H [facility] Last Admin: 07/09/18 06:24 Dose: 100 mls/hr Ketorolac Tromethamine (Toradol) 30 mg IVP Q6 PRN PRN Reason: Pain, Mild (1-3) Last Admin: 07/08/18 21:36 Dose: 30 mg Morphine Sulfate (Morphine) 2 mg IV Q6 PRN PRN Reason: Pain, moderate (4-7) Pantoprazole Sodium (Protonix Inj) 40 mg IVP DAILY [facility] Last Admin: 07/09/18 10:04 Dose: 40 mg Pneumococcal Polyvalent Vaccine (Pneumovax 23 Vaccine) 0.5 ml IM .ONCE ONE Stop: 07/10/18 10:01 Physical Exam - Constitutional Appears: Non-toxic, No Acute Distress - Eye Exam Eye Exam: EOMI, PERRL - ENT Exam ENT Exam: Mucous Membranes Moist - Respiratory Exam Respiratory Exam: Clear to Auscultation Bilateral. absent: Rales, Rhonchi, Wheezes - Cardiovascular Exam Cardiovascular Exam: RRR, +S1, +S2 - GI/Abdominal Exam GI & Abdominal Exam: Normal Bowel Sounds, Soft, Tenderness (RLQ). absent: Distended, Firm, Guarding, Mass, Organomegaly, Rebound, Rigid - Extremities Exam Extremities exam: Positive for: normal inspection. Negative for: pedal edema - Neurological Exam Neurological exam: Alert, Oriented x3 - Psychiatric Exam Psychiatric exam: Normal Affect, Normal Mood - Skin Skin Exam: Dry, Warm Results - Vital Signs Recent Vital Signs: Last Vital Signs Temp 97.7 F 07/09/18 08:29 Pulse 44 L 07/09/18 08:29 Resp 20 07/09/18 08:29 BP 114/72 07/09/18 08:29 Pulse Ox 98 07/09/18 08:29 - Labs Result Diagrams: 07/09/18 07:27 07/09/18 07:27 Labs: Laboratory Results - last 24 hr 07/08/18 07/08/18 07/08/18 10:55 11:20 11:20 WBC 3.6 L RBC 4.41 Hgb 13.7 Hct 40.3 MCV 91.4 MCH 31.0 MCHC 33.9 RDW 13.4 Plt Count 211 MPV 7.7 Neut % (Auto) 68.0 Lymph % (Auto) 24.0 Mclean % (Auto) 8.0 Eos % (Auto) 0.0 Baso % (Auto) 0.0 Neut # (Auto) 2.5 Lymph # (Auto) 0.9 L Mclean # (Auto) 0.3 Eos # (Auto) 0.0 Baso # (Auto) 0.0 pO2 32 VBG pH 7.35 VBG pCO2 48 VBG HCO3 24.1 VBG Total CO2 28.0 VBG O2 Sat (Calc) 72.9 H VBG Base Excess 0.3 VBG Potassium 3.6 Sodium 140.0 140 Chloride 109.0 H 107 Glucose 81 Lactate 1.1 Potassium 4.1 Carbon Dioxide 30 Anion Gap 7 L BUN 6 L Creatinine 0.8 Est GFR ( Amer) > 60 Est GFR (Non-Af Amer) > 60 Random Glucose 80 Calcium 9.1 Phosphorus Magnesium Total Bilirubin 0.7 AST 17 ALT 12 L Alkaline Phosphatase 56 Total Protein 6.1 L Albumin 3.6 Globulin 2.5 Albumin/Globulin Ratio 1.4 Lipase 149 Venous Blood Potassium 3.6 Urine Color Urine Clarity Urine pH Ur Specific Shock Urine Protein Urine Glucose (UA) Urine Ketones Urine Blood Urine Nitrate Urine Bilirubin Urine Urobilinogen Ur Leukocyte Esterase Urine WBC (Auto) Ur Squamous Epith Cells Stool Occult Blood Urine Opiates Screen Urine Methadone Screen Ur Barbiturates Screen Ur Phencyclidine Scrn Ur Amphetamines Screen U Benzodiazepines Scrn U Oth Cocaine Metabols U Cannabinoids Screen 07/08/18 07/08/18 07/08/18 12:48 12:48 17:23 WBC RBC Hgb Hct MCV MCH MCHC RDW Plt Count MPV Neut % (Auto) Lymph % (Auto) Mclean % (Auto) Eos % (Auto) Baso % (Auto) Neut # (Auto) Lymph # (Auto) Mclean # (Auto) Eos # (Auto) Baso # (Auto) pO2 VBG pH VBG pCO2 VBG HCO3 VBG Total CO2 VBG O2 Sat (Calc) VBG Base Excess VBG Potassium Sodium Chloride Glucose Lactate Potassium Carbon Dioxide Anion Gap BUN Creatinine Est GFR ( Amer) Est GFR (Non-Af Amer) Random Glucose Calcium Phosphorus Magnesium Total Bilirubin AST ALT Alkaline Phosphatase Total Protein Albumin Globulin Albumin/Globulin Ratio Lipase Venous Blood Potassium Urine Color Yellow Urine Clarity Clear Urine pH 6.0 Ur Specific Shock 1.008 Urine Protein Negative Urine Glucose (UA) Normal Urine Ketones Negative Urine Blood Negative Urine Nitrate Negative Urine Bilirubin Negative Urine Urobilinogen Normal Ur Leukocyte Esterase Neg Urine WBC (Auto) 1 Ur Squamous Epith Cells < 1 Stool Occult Blood Negative Urine Opiates Screen Negative Urine Methadone Screen Negative Ur Barbiturates Screen Negative Ur Phencyclidine Scrn Negative Ur Amphetamines Screen Negative U Benzodiazepines Scrn Negative U Oth Cocaine Metabols Negative U Cannabinoids Screen Positive H 07/09/18 07/09/18 07:27 07:27 WBC 2.5 L RBC 4.35 L Hgb 13.5 Hct 39.7 MCV 91.4 MCH 31.0 MCHC 33.9 RDW 13.4 Plt Count 196 MPV 7.8 Neut % (Auto) Lymph % (Auto) Mclean % (Auto) Eos % (Auto) Baso % (Auto) Neut # (Auto) Lymph # (Auto) Mclean # (Auto) Eos # (Auto) Baso # (Auto) pO2 VBG pH VBG pCO2 VBG HCO3 VBG Total CO2 VBG O2 Sat (Calc) VBG Base Excess VBG Potassium Sodium 137 Chloride 107 Glucose Lactate Potassium 3.8 Carbon Dioxide 27 Anion Gap 6 L BUN 7 L Creatinine 0.7 L Est GFR ( Amer) > 60 Est GFR (Non-Af Amer) > 60 Random Glucose 84 Calcium 8.8 Phosphorus 3.1 Magnesium 1.9 Total Bilirubin 0.9 AST 20 ALT 21 D Alkaline Phosphatase 59 Total Protein 5.7 L Albumin 3.4 L Globulin 2.3 Albumin/Globulin Ratio 1.4 Lipase Venous Blood Potassium Urine Color Urine Clarity Urine pH Ur Specific Shock Urine Protein Urine Glucose (UA) Urine Ketones Urine Blood Urine Nitrate Urine Bilirubin Urine Urobilinogen Ur Leukocyte Esterase Urine WBC (Auto) Ur Squamous Epith Cells Stool Occult Blood Urine Opiates Screen Urine Methadone Screen Ur Barbiturates Screen Ur Phencyclidine Scrn Ur Amphetamines Screen U Benzodiazepines Scrn U Oth Cocaine Metabols U Cannabinoids Screen Assessment & Plan - Assessment and Plan (Free Text) Assessment: Patient is a 47 year old -Italian male with PMHx significant for DVT/PE and internal hemorrhoids who presented to the ED for abdominal pain. States he has suffered with intermittent, stabbing, RLQ abdominal pain for the last 3 years -Intraluminal cecal mass -Unintentional weight loss -Chronic RLQ abdominal pain Plan: -Both CT A/P reviewed -Given finding of intraluminal lesion and RLQ abdominal pain, recommend colonoscopy for further evaluation, resection or biopsy as amenable if identified -Clear liquid diet today, NPO past midnight -GoLytely prep ordered -Analgesia and antiemetics PRN per primary service -Colonoscopy scheduled for tomorrow AM -CEA level ordered, pending -Check PT/INR -Plan per findings - Date & Time Date: 07/09/18 Time: 10:00 <Lydia Ibrahim - Last Filed: 07/09/18 13:24> Meds - Medications Medications: Current Medications Lactated Ringer's (Lactated Ringer's) 1,000 mls @ 100 mls/hr IV .Q10H [facility] Last Admin: 07/09/18 06:24 Dose: 100 mls/hr Ketorolac Tromethamine (Toradol) 30 mg IVP Q6 PRN PRN Reason: Pain, Mild (1-3) Last Admin: 07/08/18 21:36 Dose: 30 mg Morphine Sulfate (Morphine) 2 mg IV Q6 PRN PRN Reason: Pain, moderate (4-7) Pantoprazole Sodium (Protonix Inj) 40 mg IVP DAILY [facility] Last Admin: 07/09/18 10:04 Dose: 40 mg Pneumococcal Polyvalent Vaccine (Pneumovax 23 Vaccine) 0.5 ml IM .ONCE ONE Stop: 07/10/18 10:01 Polyethylene Glycol/Electrolytes (Golytely) 4,000 ml PO ONCE ONE Stop: 07/09/18 15:01 Results - Vital Signs Recent Vital Signs: Last Vital Signs Temp 97.7 F 07/09/18 08:29 Pulse 46 L 07/09/18 11:47 Resp 20 07/09/18 08:29 BP 114/72 07/09/18 08:29 Pulse Ox 98 07/09/18 08:29 - Labs Result Diagrams: 07/09/18 07:27 07/09/18 07:27 Labs: Laboratory Results - last 24 hr 07/08/18 07/08/18 07/09/18 12:48 17:23 07:27 WBC 2.5 L RBC 4.35 L Hgb 13.5 Hct 39.7 MCV 91.4 MCH 31.0 MCHC 33.9 RDW 13.4 Plt Count 196 MPV 7.8 Neut % (Auto) 52.0 Lymph % (Auto) 36.0 Mclean % (Auto) 11.0 H Eos % (Auto) 1.0 Neut # (Auto) 1.3 L Lymph # (Auto) 0.9 L Mclean # (Auto) 0.3 Eos # (Auto) 0.0 Baso # (Auto) 0.0 Sodium Potassium Chloride Carbon Dioxide Anion Gap BUN Creatinine Est GFR ( Amer) Est GFR (Non-Af Amer) Random Glucose Calcium Phosphorus Magnesium Total Bilirubin AST ALT Alkaline Phosphatase Total Protein Albumin Globulin Albumin/Globulin Ratio Stool Occult Blood Negative U Cannabinoids Screen Positive H 07/09/18 07:27 WBC RBC Hgb Hct MCV MCH MCHC RDW Plt Count MPV Neut % (Auto) Lymph % (Auto) Mclean % (Auto) Eos % (Auto) Neut # (Auto) Lymph # (Auto) Mclean # (Auto) Eos # (Auto) Baso # (Auto) Sodium 137 Potassium 3.8 Chloride 107 Carbon Dioxide 27 Anion Gap 6 L BUN 7 L Creatinine 0.7 L Est GFR ( Amer) > 60 Est GFR (Non-Af Amer) > 60 Random Glucose 84 Calcium 8.8 Phosphorus 3.1 Magnesium 1.9 Total Bilirubin 0.9 AST 20 ALT 21 D Alkaline Phosphatase 59 Total Protein 5.7 L Albumin 3.4 L Globulin 2.3 Albumin/Globulin Ratio 1.4 Stool Occult Blood U Cannabinoids Screen Attending/Attestation - Attestation I have personally seen and examined this patient.: Yes I have fully participated in the care of the patient.: Yes I have reviewed all pertinent clinical information: Yes Notes (Text): 07/09/18 13:20 I have seen and examined the patient with the GI fellow. This is a 47 yo M with active marijuana use, h/o DVT/PE s/p course of Coumadin and h/o chronic RLQ abdominal pain x 3 yrs, p/w worsening RLQ abdominal pain found to have large, cecal mass on CT abd/pelvis. Has never had colonoscopy. No family h/o GI cancers. Has normal BMs, denies melena or hematochezia. Notes he gets diarrhea on the wknd after drinking wine. 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
[2018-07-09 11:01] LABS: LYMPH # 0.9 K/uL (1.0-4.3); MONO # 0.3 K/uL (0.0-0.8); NEUT # 1.3 K/uL (1.8-7.0)
--- NOTE | 2018-07-09 12:32 | CP.PCM.PN ---
<Sven Huffman - Last Filed: 07/09/18 12:33> Subjective - Date & Time of Evaluation Date of Evaluation: 07/09/18 Time of Evaluation: 08:00 - Subjective Subjective: General Surgery Note for Dr. Cowan Patient seen and examined at bedside. No acute event overnight. Patient denies abd pain today. Patient tolerating liquid diet. Patient going for colonoscopy tomorrow 07/10. Will plan for OR Thursday 07/13. Objective - Vital Signs/Intake and Output Vital Signs (last 24 hours): Temp Pulse Resp BP Pulse Ox 97.7 F 46 L 20 114/72 98 07/09/18 08:29 07/09/18 11:47 07/09/18 08:29 07/09/18 08:29 07/09/18 08:29 - Medications Medications: Current Medications Lactated Ringer's (Lactated Ringer's) 1,000 mls @ 100 mls/hr IV .Q10H [facility] Last Admin: 07/09/18 06:24 Dose: 100 mls/hr Ketorolac Tromethamine (Toradol) 30 mg IVP Q6 PRN PRN Reason: Pain, Mild (1-3) Last Admin: 07/08/18 21:36 Dose: 30 mg Morphine Sulfate (Morphine) 2 mg IV Q6 PRN PRN Reason: Pain, moderate (4-7) Pantoprazole Sodium (Protonix Inj) 40 mg IVP DAILY [facility] Last Admin: 07/09/18 10:04 Dose: 40 mg Pneumococcal Polyvalent Vaccine (Pneumovax 23 Vaccine) 0.5 ml IM .ONCE ONE Stop: 07/10/18 10:01 Polyethylene Glycol/Electrolytes (Golytely) 4,000 ml PO ONCE ONE Stop: 07/09/18 15:01 - Labs Labs: 07/09/18 07:27 07/09/18 07:27 - Additional Findings Additional findings: - Constitutional Appears: Well, Non-toxic, No Acute Distress - Head Exam Head Exam: ATRAUMATIC, NORMOCEPHALIC - Eye Exam Eye Exam: EOMI - ENT Exam ENT Exam: Mucous Membranes Moist - Respiratory Exam Respiratory Exam: NORMAL BREATHING PATTERN - Cardiovascular Exam Cardiovascular Exam: REGULAR RHYTHM - GI/Abdominal Exam GI & Abdominal Exam: Soft. absent: Guarding, Rigid, Tenderness - Extremities Exam Extremities exam: Negative for: calf tenderness, pedal edema - Neurological Exam Neurological exam: Alert, Oriented x3 - Psychiatric Exam Psychiatric exam: Normal Affect, Normal Mood - Skin Skin Exam: Dry, Intact, Normal Color, Warm Assessment and Plan - Assessment and Plan (Free Text) Assessment: 47 yr old male with large intraluminal cecal mass Plan: - pain control - f/u CEA - encourage OOB and ambulation - f/u GI recommendations - f/u colonoscopy - f/u pathology - DVT ppx - Plan for right hemicolectomy on Thursday 07/13 - Medical management as per primary - discussed with Dr. Cowan <Darrius Haskins - Last Filed: 07/11/18 14:12> Objective - Vital Signs/Intake and Output Vital Signs (last 24 hours): Temp Pulse Resp BP Pulse Ox 98.8 F 55 L 20 133/76 98 07/11/18 08:40 07/11/18 08:40 07/11/18 08:40 07/11/18 08:40 07/11/18 08:40 - Medications Medications: Current Medications Erythromycin (Randy-Tab) 1,000 mg PO Q1H [facility]; Protocol Stop: 07/12/18 18:01 Erythromycin (Randy-Tab) 1,000 mg PO ONCE ONE; Protocol Stop: 07/13/18 03:01 Lactated Ringer's (Lactated Ringer's) 1,000 mls @ 110 mls/hr IV .Q9H6M [facility] Ketorolac Tromethamine (Toradol) 30 mg IVP Q6 PRN PRN Reason: Pain, Mild (1-3) Last Admin: 07/08/18 21:36 Dose: 30 mg Magnesium Citrate (Citrate Of Mag) 600 ml PO ONCE ONE Stop: 07/12/18 18:01 Morphine Sulfate (Morphine) 2 mg IV Q6 PRN PRN Reason: Pain, moderate (4-7) Neomycin Sulfate (Neomycin Tab) 1,000 mg PO Q1H [facility] Stop: 07/12/18 18:01 Neomycin Sulfate (Neomycin Tab) 1,000 mg PO ONCE ONE Stop: 07/13/18 03:01 Pantoprazole Sodium (Protonix Inj) 40 mg IVP DAILY [facility] Last Admin: 07/11/18 09:24 Dose: 40 mg - Labs Labs: 07/11/18 07:45 07/11/18 07:45 PT 13.1 SECONDS (9.7-12.2) H 07/10/18 11:33 INR 1.2 07/10/18 11:33 Assessment and Plan - Assessment and Plan (Free Text) Assessment: All medical record entries made by the resident were at my direction. I have reviewed the chart and agree that the record accurately reflects my personal performance of the history, physical exam, and medical decision making.
[2018-07-09 14:11] LABS: INR 1.2; PROTHROMBIN TIME 12.8 SECONDS (9.7-12.2)
[2018-07-09] MEDS ORDERED: Peg-Electrolyte Oral Soln 4L (Golytely) PO ONE (15:00)
--- NOTE | 2018-07-09 15:14 | CT ---
Date of service: 07/09/2018 PROCEDURE: CT Chest with contrast HISTORY: colon mass, rule out metastasis COMPARISON: None available. TECHNIQUE: Contiguous axial images were obtained through the chest with intravenous contrast enhancement. Sagittal and coronal reconstructions were performed. IV contrast: Radiation dose: Total exam DLP = 331.7 mGy-cm. This CT exam was performed using one or more of the following dose reduction techniques: Automated exposure control, adjustment of the mA and/or kV according to patient size, and/or use of iterative reconstruction technique. FINDINGS: LUNGS: Discoid atelectasis/linear fibrosis at the left base. MEDIASTINUM: Unremarkable thoracic aorta. No aneurysm or dissection. Normal sized heart. Main pulmonary artery unremarkable. No vascular congestion. No lymphadenopathy. No aortic atherosclerotic calcification or mural plaque present. PLEURA: No pleural fluid. No pneumothorax. BONES: No fracture. No destructive lesion. UPPER ABDOMEN: See previous CT abdomen pelvis report. OTHER FINDINGS: None. IMPRESSION: Discoid atelectasis/linear fibrosis at the left base.
[2018-07-10] MEDS: Lactated Ringer's 1,000 ML IV SCH ×3 (00:03→12:05)
--- NOTE | 2018-07-10 07:15 | CP.PCM.PN ---
<Kashif Clements - Last Filed: 07/10/18 21:06> Subjective - Date & Time of Evaluation Date of Evaluation: 07/10/18 Time of Evaluation: 07:15 - Subjective Subjective: PGY-[address] bogdan Gardner Patient is seen and examined at bedside, reports no acute events overnight, patient states his abdominal pain has resolved, patient admits to 15 BM, patient has been drinking Golytely prep for colonoscopy this morning. Patient has been NPO since midnight. Patient denies fever, chills, chest pain, sob, nausea, vomiting or urinary symptoms. Patient is OOB and ambulating. Objective - Vital Signs/Intake and Output Vital Signs (last 24 hours): Temp Pulse Resp BP Pulse Ox 98.3 F 48 L 20 118/66 95 07/09/18 23:40 07/10/18 00:40 07/09/18 23:40 07/09/18 23:40 07/09/18 23:40 - Medications Medications: Current Medications Lactated Ringer's (Lactated Ringer's) 1,000 mls @ 100 mls/hr IV .Q10H [facility] Last Admin: 07/10/18 02:28 Dose: Not Given Ketorolac Tromethamine (Toradol) 30 mg IVP Q6 PRN PRN Reason: Pain, Mild (1-3) Last Admin: 07/08/18 21:36 Dose: 30 mg Morphine Sulfate (Morphine) 2 mg IV Q6 PRN PRN Reason: Pain, moderate (4-7) Pantoprazole Sodium (Protonix Inj) 40 mg IVP DAILY [facility] Last Admin: 07/09/18 10:04 Dose: 40 mg Pneumococcal Polyvalent Vaccine (Pneumovax 23 Vaccine) 0.5 ml IM .ONCE ONE Stop: 07/10/18 10:01 - Labs Labs: 07/09/18 07:27 07/09/18 07:27 PT 12.8 SECONDS (9.7-12.2) H 07/09/18 13:55 INR 1.2 07/09/18 13:55 - Constitutional Appears: Non-toxic, No Acute Distress - Head Exam Head Exam: ATRAUMATIC, NORMAL INSPECTION, NORMOCEPHALIC - Eye Exam Eye Exam: EOMI - ENT Exam ENT Exam: Mucous Membranes Moist - Neck Exam Neck Exam: Full ROM - Respiratory Exam Respiratory Exam: Clear to Ausculation Bilateral, NORMAL BREATHING PATTERN - Cardiovascular Exam Cardiovascular Exam: Bradycardia, +S1, +S2 - GI/Abdominal Exam GI & Abdominal Exam: Soft, Normal Bowel Sounds. absent: Distended, Guarding, Rigid, Tenderness - Extremities Exam Extremities Exam: Full ROM, Normal Inspection. absent: Pedal Edema, Tenderness - Back Exam Back Exam: NORMAL INSPECTION. absent: CVA tenderness (L), CVA tenderness (R), paraspinal tenderness - Neurological Exam Neurological Exam: Alert, Awake, Oriented x3 - Psychiatric Exam Psychiatric exam: Normal Affect, Normal Mood - Skin Skin Exam: Dry, Normal Color, Warm Assessment and Plan - Assessment and Plan (Free Text) Assessment: Patient is a 47 year old male with past medical history of hemorrhoids, complaining of diffuse abdominal pain, bloody stool last week and weight loss, admitted for CT findings of large intraluminal cecal mass/polyp , GI and surgery on board. Plan: Mass of cecum Abdomen/Pelvis CT with PO contrast (07/08/18): Large intraluminal mass in the cecum which may represent a large polyp or neoplasm. Histopathologic correlation is recommended. Abdomen/Pelvis CT with IV contrast (07/07/18): Possible mural thickening and luminal narrowing involving the ascending colon. Questionable intussusception of bowel loops along the ascending colon as well. Recommend repeat examination with oral contrast. Lipase (WNL) CT Chest - discoid atelectasis/linear fibrosis at left base CEA - 8.8 - GI consult - Dr Lydia Ibrahim - colonoscopy today shows likely malignant tumor in the cecum, biopsied - Surgery consult -Dr. Haskins- f/u GI recs and colonoscopy, plan for right hemicolectomy on Thursday 07/13 Abdominal pain, resolving Secondary to cecal mass Toradol 30mg IVP Q6 PRN Hematochezia Does not report blood in stools at this time, last time was one week ago Stool Occult (07/08/18): Negative Prophylactic measure DVT: SCDs GI: protonix 40mg IVP QD encourage OOB and ambulation LR @ 100 mls/hr Dispo: As per surgery, planning for right hemicolectomy on 07/13. Plan discussed with Dr Kendra Clements, PGY-1 <Bogdan Gardner - Last Filed: 07/11/18 07:50> Objective - Vital Signs/Intake and Output Vital Signs (last 24 hours): Temp Pulse Resp BP Pulse Ox 98.6 F 80 20 120/68 95 07/11/18 04:00 07/11/18 04:00 07/11/18 04:00 07/11/18 04:00 07/11/18 04:00 - Medications Medications: Current Medications Erythromycin (Randy-Tab) 1,000 mg PO Q1H [facility]; Protocol Stop: 07/12/18 18:01 Erythromycin (Randy-Tab) 1,000 mg PO ONCE ONE; Protocol Stop: 07/13/18 03:01 Lactated Ringer's (Lactated Ringer's) 1,000 mls @ 110 mls/hr IV .Q9H6M [facility] Ketorolac Tromethamine (Toradol) 30 mg IVP Q6 PRN PRN Reason: Pain, Mild (1-3) Last Admin: 07/08/18 21:36 Dose: 30 mg Magnesium Citrate (Citrate Of Mag) 600 ml PO ONCE ONE Stop: 07/12/18 18:01 Morphine Sulfate (Morphine) 2 mg IV Q6 PRN PRN Reason: Pain, moderate (4-7) Neomycin Sulfate (Neomycin Tab) 1,000 mg PO Q1H [facility] Stop: 07/12/18 18:01 Neomycin Sulfate (Neomycin Tab) 1,000 mg PO ONCE ONE Stop: 07/13/18 03:01 Pantoprazole Sodium (Protonix Inj) 40 mg IVP DAILY [facility] Last Admin: 07/10/18 11:14 Dose: 40 mg - Labs Labs: 07/10/18 11:33 07/10/18 11:33 PT 13.1 SECONDS (9.7-12.2) H 07/10/18 11:33 INR 1.2 07/10/18 11:33 Attending/Attestation - Attestation I have personally seen and examined this patient.: Yes I have fully participated in the care of the patient.: Yes I have reviewed all pertinent clinical information, including history, physical exam and plan: Yes Notes (Text): Medical attending: Patient was seen and examined by me. Reviewed the above note by the resident The patient has returned from the colonoscopy and it shows very concerning results for a malignancy. His family member was present in the room as well and we reviewed this with the patient and family There are plans for surgery this coming Friday. At this time he is not having any pain while at rest. Bogdan Gardner
[2018-07-10] MEDS ORDERED: Propofol 10 mg/ml Inj (20 ML) ONE ×2 (08:16→08:51)
[2018-07-10] MEDS ORDERED: Lactated Ringer's 500 ML IV ONE ×2 (08:25)
[2018-07-10] MEDS ORDERED: Pneumococcal 23-Valent Vaccine IM ONE (10:00)
[2018-07-10 11:44] LABS: BASO # 0.1 K/uL (0.0-0.2); BASO % 2.9 % (0.0-2.0); EOS # 0.1 K/uL (0.0-0.7); EOS % 2.6 % (0.0-4.0); HEMOGLOBIN 14.2 g/dL (12.0-18.0); LYMPH % 36.4 % (20.0-40.0); MEAN CELL VOLUME 91.5 fL (80.0-94.0); MEAN CORPUSCULAR HGB CONC 33.9 g/dL (33.0-37.0); MEAN PLATELET VOLUME 7.9 fL (7.2-11.7); MONO # 0.2 K/uL (0.0-0.8); MONO % 7.4 % (0.0-10.0); NEUT # 1.4 K/uL (1.8-7.0); NEUT % 50.7 % (50.0-75.0); NRBC % 0.2 % (0.0-2.0); RBC 4.57 Mil/uL (4.40-5.90); RED CELL DISTRIBUTION WIDTH 13.4 % (11.5-14.5); WHITE BLOOD COUNT 2.8 K/uL (4.8-10.8)
[2018-07-10 11:46] LABS: INR 1.2; PROTHROMBIN TIME 13.1 SECONDS (9.7-12.2)
[2018-07-10 12:05] LABS: ALB/GLOB RATIO 1.3 (1.0-2.1); ALBUMIN 3.4 g/dL (3.5-5.0); ALT/SGPT 18 U/L (21-72); AST/SGOT 17 U/L (17-59); BLOOD UREA NITROGEN 4 mg/dL (9-20); CALCIUM 9.1 mg/dl (8.6-10.4); GFR NON-AFRICAN AMERICAN > 60
--- NOTE | 2018-07-10 14:12 | RAD ---
Date of service: 07/10/2018 HISTORY: preop COMPARISON: No prior. TECHNIQUE: Chest PA and lateral views FINDINGS: LUNGS: No active pulmonary disease. PLEURA: No significant pleural effusion identified. No pneumothorax apparent. CARDIOVASCULAR: No aortic atherosclerotic calcification present. Normal cardiac size. No pulmonary vascular congestion. OSSEOUS STRUCTURES: No significant abnormalities. VISUALIZED UPPER ABDOMEN: Normal. OTHER FINDINGS: None. IMPRESSION: No active disease.
--- NOTE | 2018-07-10 23:35 | CARD ---
APPROVED REPORT Date of service: 07/09/2018 EKG Measurement Heart [id number] <Conclusion> Sinus bradycardia Septal infarct, age undetermined Abnormal ECG
--- NOTE | 2018-07-11 00:24 | CP.PCM.PN ---
<Mike Og - Last Filed: 07/11/18 06:03> Subjective - Date & Time of Evaluation Date of Evaluation: 07/11/18 Time of Evaluation: 05:15 - Subjective Subjective: Medicine progress note for Hosptialist Dr. Gardner. Patient seen and examined at bedside. Patient is post colonoscopy by GI on 07/10. Patient has no active complaints. Patient reports sudden Left arm pain a few hours prior, but now resolved. Patient reports several episodes of diarrhea on 07/09 however none today thus far. Patient denies headaches, vision changes, ros[address] st pain, SOB, nausea, vomiting, diarrhea, constipation, fevers, chills. Objective - Vital Signs/Intake and Output Vital Signs (last 24 hours): Temp Pulse Resp BP Pulse Ox 98.8 F 65 20 120/77 98 07/10/18 16:00 07/10/18 17:30 07/10/18 16:00 07/10/18 16:00 07/10/18 16:00 - Medications Medications: Current Medications Erythromycin (Randy-Tab) 1,000 mg PO Q1H [facility]; Protocol Stop: 07/12/18 18:01 Erythromycin (Randy-Tab) 1,000 mg PO ONCE ONE; Protocol Stop: 07/13/18 03:01 Lactated Ringer's (Lactated Ringer's) 1,000 mls @ 110 mls/hr IV .Q9H6M [facility] Ketorolac Tromethamine (Toradol) 30 mg IVP Q6 PRN PRN Reason: Pain, Mild (1-3) Last Admin: 07/08/18 21:36 Dose: 30 mg Magnesium Citrate (Citrate Of Mag) 600 ml PO ONCE ONE Stop: 07/12/18 18:01 Morphine Sulfate (Morphine) 2 mg IV Q6 PRN PRN Reason: Pain, moderate (4-7) Neomycin Sulfate (Neomycin Tab) 1,000 mg PO Q1H [facility] Stop: 07/12/18 18:01 Neomycin Sulfate (Neomycin Tab) 1,000 mg PO ONCE ONE Stop: 07/13/18 03:01 Pantoprazole Sodium (Protonix Inj) 40 mg IVP DAILY [facility] Last Admin: 07/10/18 11:14 Dose: 40 mg - Labs Labs: 07/10/18 11:33 07/10/18 11:33 PT 13.1 SECONDS (9.7-12.2) H 07/10/18 11:33 INR 1.2 07/10/18 11:33 - Constitutional Appears: Non-toxic, No Acute Distress - Head Exam Head Exam: NORMAL INSPECTION - Eye Exam Eye Exam: EOMI, Normal appearance - ENT Exam ENT Exam: Mucous Membranes Moist - Respiratory Exam Respiratory Exam: Clear to Ausculation Bilateral, NORMAL BREATHING PATTERN. absent: Rales, Rhonchi, Wheezes - Cardiovascular Exam Cardiovascular Exam: +S1, +S2 - GI/Abdominal Exam GI & Abdominal Exam: Soft. absent: Firm, Guarding, Rigid - Extremities Exam Extremities Exam: Full ROM, Normal Inspection. absent: Calf Tenderness, Pedal Edema - Back Exam Back Exam: absent: CVA tenderness (L), CVA tenderness (R) - Neurological Exam Neurological Exam: Alert, Awake, Oriented x3 - Psychiatric Exam Psychiatric exam: Normal Affect, Normal Mood - Skin Skin Exam: Dry, Intact, Normal Color, Warm Assessment and Plan - Assessment and Plan (Free Text) Assessment: Patient is a 47 year old male with past medical history of hemorrhoids, complaining of diffuse abdominal pain, bloody stool last week and weight loss, a dmitted for CT findings of large intraluminal cecal mass/polyp , GI and surgery on board; hemicolectomy scheduled for 07/13. Plan: Mass of cecum Abdomen/Pelvis CT with PO contrast (07/08/18): Large intraluminal mass in the cecum which may represent a large polyp or neoplasm. Histopathologic correlation is recommended. Abdomen/Pelvis CT with IV contrast (07/07/18): Possible mural thickening and luminal narrowing involving the ascending colon. Questionable intussusception of bowel loops along the ascending colon as well. Recommend repeat examination with oral contrast. Lipase (WNL) CT Chest - discoid atelectasis/linear fibrosis at left base CEA - 8.8 - GI consult - Dr Lydia Ibrahim - colonoscopy today shows likely malignant tumor in the cecum, biopsied - Surgery consult -Dr. Haskins- f/u GI recs and colonoscopy, plan for right hemicolectomy on Thursday 07/13 Abdominal pain, resolving Secondary to cecal mass Toradol 30mg IVP Q6 PRN Hematochezia Does not report blood in stools at this time, last time was one week ago Stool Occult (07/08/18): Negative Prophylactic measure DVT: SCDs GI: protonix 40mg IVP QD encourage OOB and ambulation LR @ 100 mls/hr Dispo: As per surgery, planning for right hemicolectomy on 07/13. Will d/w with Dr. Gardner <Bogdan Gardner - Last Filed: 07/11/18 10:50> Objective - Vital Signs/Intake and Output Vital Signs (last 24 hours): Temp Pulse Resp BP Pulse Ox 98.8 F 55 L 20 133/76 98 07/11/18 08:40 07/11/18 08:40 07/11/18 08:40 07/11/18 08:40 07/11/18 08:40 - Medications Medications: Current Medications Erythromycin (Randy-Tab) 1,000 mg PO Q1H [facility]; Protocol Stop: 07/12/18 18:01 Erythromycin (Randy-Tab) 1,000 mg PO ONCE ONE; Protocol Stop: 07/13/18 03:01 Lactated Ringer's (Lactated Ringer's) 1,000 mls @ 110 mls/hr IV .Q9H6M [facility] Ketorolac Tromethamine (Toradol) 30 mg IVP Q6 PRN PRN Reason: Pain, Mild (1-3) Last Admin: 07/08/18 21:36 Dose: 30 mg Magnesium Citrate (Citrate Of Mag) 600 ml PO ONCE ONE Stop: 07/12/18 18:01 Morphine Sulfate (Morphine) 2 mg IV Q6 PRN PRN Reason: Pain, moderate (4-7) Neomycin Sulfate (Neomycin Tab) 1,000 mg PO Q1H [facility] Stop: 07/12/18 18:01 Neomycin Sulfate (Neomycin Tab) 1,000 mg PO ONCE ONE Stop: 07/13/18 03:01 Pantoprazole Sodium (Protonix Inj) 40 mg IVP DAILY [facility] Last Admin: 07/11/18 09:24 Dose: 40 mg - Labs Labs: 07/11/18 07:45 07/11/18 07:45 PT 13.1 SECONDS (9.7-12.2) H 07/10/18 11:33 INR 1.2 07/10/18 11:33 Attending/Attestation - Attestation I have personally seen and examined this patient.: Yes I have fully participated in the care of the patient.: Yes I have reviewed all pertinent clinical information, including history, physical exam and plan: Yes Notes (Text): 07/11/18 10:48 Medical attending: Patient was seen and examined by me. Agree with the above note by the resident The patient was not in any acute distress and reported only minimal abdominal pain earlier in the morning and none by the time I came and saw him The patient is pending OR this Friday Bogdan Gardner
[2018-07-11 08:02] LABS: BASO # 0.1 K/uL (0.0-0.2); BASO % 1.9 % (0.0-2.0); EOS # 0.1 K/uL (0.0-0.7); EOS % 1.5 % (0.0-4.0); HEMOGLOBIN 15.1 g/dL (12.0-18.0); LYMPH # 1.4 K/uL (1.0-4.3); LYMPH % 33.5 % (20.0-40.0); MEAN CORPUSCULAR HEMOGLOBIN 30.7 pg (27.0-31.0); MEAN CORPUSCULAR HGB CONC 34.1 g/dL (33.0-37.0); MEAN PLATELET VOLUME 8.2 fL (7.2-11.7); MONO # 0.3 K/uL (0.0-0.8); MONO % 8.5 % (0.0-10.0); NEUT # 2.2 K/uL (1.8-7.0); NEUT % 54.6 % (50.0-75.0); NRBC % 0.2 % (0.0-2.0); RBC 4.93 Mil/uL (4.40-5.90); RED CELL DISTRIBUTION WIDTH 13.3 % (11.5-14.5)
[2018-07-11 08:18] LABS: ALB/GLOB RATIO 1.9 (1.0-2.1); ALBUMIN 4.5 g/dL (3.5-5.0); ALT/SGPT 12 U/L (21-72); AST/SGOT 17 U/L (17-59); BLOOD UREA NITROGEN 7 mg/dL (9-20); CALCIUM 9.5 mg/dl (8.6-10.4); GFR NON-AFRICAN AMERICAN > 60
--- NOTE | 2018-07-11 13:08 | CP.PCM.PN ---
<Flaca Emanuel - Last Filed: 07/11/18 13:03> Subjective - Date & Time of Evaluation Date of Evaluation: 07/11/18 Time of Evaluation: 13:03 - Subjective Subjective: Gastroenterology Fellow/PGY6 Progress Note Patient resting comfortably. Denies abdominal pain. Tolerating regular diet. A 12-point review of systems negative except for as above. Objective - Vital Signs/Intake and Output Vital Signs (last 24 hours): Temp Pulse Resp BP Pulse Ox 98.8 F 55 L 20 133/76 98 07/11/18 08:40 07/11/18 08:40 07/11/18 08:40 07/11/18 08:40 07/11/18 08:40 - Medications Medications: Current Medications Erythromycin (Randy-Tab) 1,000 mg PO Q1H [facility]; Protocol Stop: 07/12/18 18:01 Erythromycin (Randy-Tab) 1,000 mg PO ONCE ONE; Protocol Stop: 07/13/18 03:01 Lactated Ringer's (Lactated Ringer's) 1,000 mls @ 110 mls/hr IV .Q9H6M [facility] Ketorolac Tromethamine (Toradol) 30 mg IVP Q6 PRN PRN Reason: Pain, Mild (1-3) Last Admin: 07/08/18 21:36 Dose: 30 mg Magnesium Citrate (Citrate Of Mag) 600 ml PO ONCE ONE Stop: 07/12/18 18:01 Morphine Sulfate (Morphine) 2 mg IV Q6 PRN PRN Reason: Pain, moderate (4-7) Neomycin Sulfate (Neomycin Tab) 1,000 mg PO Q1H [facility] Stop: 07/12/18 18:01 Neomycin Sulfate (Neomycin Tab) 1,000 mg PO ONCE ONE Stop: 07/13/18 03:01 Pantoprazole Sodium (Protonix Inj) 40 mg IVP DAILY [facility] Last Admin: 07/11/18 09:24 Dose: 40 mg - Labs Labs: 07/11/18 07:45 07/11/18 07:45 PT 13.1 SECONDS (9.7-12.2) H 07/10/18 11:33 INR 1.2 07/10/18 11:33 - Constitutional Appears: Non-toxic, No Acute Distress - Head Exam Head Exam: ATRAUMATIC, NORMOCEPHALIC - Eye Exam Eye Exam: EOMI, PERRL. absent: Scleral icterus Pupil Exam: absent: Miosis, Mydriatic - ENT Exam ENT Exam: Mucous Membranes Moist, Normal Oropharynx - Respiratory Exam Respiratory Exam: Clear to Ausculation Bilateral. absent: Rales, Rhonchi, Wheezes - Cardiovascular Exam Cardiovascular Exam: RRR, +S1, +S2. absent: Gallop, Rubs - GI/Abdominal Exam GI & Abdominal Exam: Soft, Normal Bowel Sounds. absent: Distended, Firm, Guarding, Rigid, Tenderness, Organomegaly - Extremities Exam Extremities Exam: Normal Inspection - Neurological Exam Neurological Exam: Alert, Awake - Psychiatric Exam Psychiatric exam: Normal Affect, Normal Mood - Skin Skin Exam: Dry, Intact, Normal Color, Warm Assessment and Plan - Assessment and Plan (Free Text) Assessment: 47 year old male with PMH of Polysubstance Abuse (marijuana, tobacco, alcohol), DVT/PE s/p Coumadin course presenting with right lower abdominal pain and unintentional weight loss. CT A/P showed large cecal mass and low attentuation liver lesions. POD1 colonoscopy showing large cecal mass s/p biopsy. Plan: -07/10 colonoscopy- 6cm partially circumferential cecal mass, pending pathology, -surgery managing- resection planned for friday -tolerating regular diet -NPO after midnight for Friday morning -supportive care -will follow clinical course <Lydia Ibrahim - Last Filed: 07/11/18 13:14> Objective - Vital Signs/Intake and Output Vital Signs (last 24 hours): Temp Pulse Resp BP Pulse Ox 98.8 F 55 L 20 133/76 98 07/11/18 08:40 07/11/18 08:40 07/11/18 08:40 07/11/18 08:40 07/11/18 08:40 - Medications Medications: Current Medications Erythromycin (Randy-Tab) 1,000 mg PO Q1H [facility]; Protocol Stop: 07/12/18 18:01 Erythromycin (Randy-Tab) 1,000 mg PO ONCE ONE; Protocol Stop: 07/13/18 03:01 Lactated Ringer's (Lactated Ringer's) 1,000 mls @ 110 mls/hr IV .Q9H6M [facility] Ketorolac Tromethamine (Toradol) 30 mg IVP Q6 PRN PRN Reason: Pain, Mild (1-3) Last Admin: 07/08/18 21:36 Dose: 30 mg Magnesium Citrate (Citrate Of Mag) 600 ml PO ONCE ONE Stop: 07/12/18 18:01 Morphine Sulfate (Morphine) 2 mg IV Q6 PRN PRN Reason: Pain, moderate (4-7) Neomycin Sulfate (Neomycin Tab) 1,000 mg PO Q1H [facility] Stop: 07/12/18 18:01 Neomycin Sulfate (Neomycin Tab) 1,000 mg PO ONCE ONE Stop: 07/13/18 03:01 Pantoprazole Sodium (Protonix Inj) 40 mg IVP DAILY [facility] Last Admin: 07/11/18 09:24 Dose: 40 mg - Labs Labs: 07/11/18 07:45 07/11/18 07:45 PT 13.1 SECONDS (9.7-12.2) H 07/10/18 11:33 INR 1.2 07/10/18 11:33 Attending/Attestation - Attestation I have personally seen and examined this patient.: Yes I have fully participated in the care of the patient.: Yes I have reviewed all pertinent clinical information, including history, physical exam and plan: Yes Notes (Text): I have seen and examined the patient with the GI fellow. Tolerating solid diet. Denies any abdominal pain. CT chest negative for mets. Path still pending. Planned for surgery on Friday. Will sign off, pls call with questions. 07/11/18 13:13 07/11/18 13:13
--- NOTE | 2018-07-12 05:10 | CP.PCM.PN ---
<Mike Og - Last Filed: 07/12/18 06:12> Subjective - Date & Time of Evaluation Date of Evaluation: 07/12/18 Time of Evaluation: 05:30 - Subjective Subjective: Medicine progress note for Hospitalist Dr. Gardner. Patient seen and examined at bedside. Pt reports having 3 losee, light brown colored, non bloody stools yesteday. Patient denies nausea vomiting, however, has some internal soreness in the RLQ. Pt denies headaches, vision changes, chest pain, SOB, cough, constipation, diarrhea, hematuria. Objective - Vital Signs/Intake and Output Vital Signs (last 24 hours): Temp Pulse Resp BP Pulse Ox 97.9 F 52 L 20 101/61 95 07/11/18 23:23 07/11/18 23:23 07/11/18 23:23 07/11/18 23:23 07/11/18 23:23 Intake and Output: 07/11/18 07/12/18 18:59 06:59 Intake Total 300 Balance 300 - Medications Medications: Current Medications Erythromycin (Randy-Tab) 1,000 mg PO Q1H [facility]; Protocol Stop: 07/12/18 18:01 Erythromycin (Randy-Tab) 1,000 mg PO ONCE ONE; Protocol Stop: 07/13/18 03:01 Lactated Ringer's (Lactated Ringer's) 1,000 mls @ 110 mls/hr IV .Q9H6M [facility] Ketorolac Tromethamine (Toradol) 30 mg IVP Q6 PRN PRN Reason: Pain, Mild (1-3) Last Admin: 07/08/18 21:36 Dose: 30 mg Magnesium Citrate (Citrate Of Mag) 600 ml PO ONCE ONE Stop: 07/12/18 18:01 Morphine Sulfate (Morphine) 2 mg IV Q6 PRN PRN Reason: Pain, moderate (4-7) Neomycin Sulfate (Neomycin Tab) 1,000 mg PO Q1H [facility] Stop: 07/12/18 18:01 Neomycin Sulfate (Neomycin Tab) 1,000 mg PO ONCE ONE Stop: 07/13/18 03:01 Pantoprazole Sodium (Protonix Inj) 40 mg IVP DAILY [facility] Last Admin: 07/11/18 09:24 Dose: 40 mg - Labs Labs: 07/11/18 07:45 07/11/18 07:45 PT 13.1 SECONDS (9.7-12.2) H 07/10/18 11:33 INR 1.2 07/10/18 11:33 - Constitutional Appears: Non-toxic, No Acute Distress - Head Exam Head Exam: NORMAL INSPECTION - Eye Exam Eye Exam: EOMI, Normal appearance - ENT Exam ENT Exam: Mucous Membranes Moist - Respiratory Exam Respiratory Exam: Clear to Ausculation Bilateral, NORMAL BREATHING PATTERN. absent: Rales, Rhonchi, Wheezes - Cardiovascular Exam Cardiovascular Exam: +S1, +S2 - GI/Abdominal Exam GI & Abdominal Exam: Soft, Normal Bowel Sounds Additional comments: no tenderness on palpation of abdominal exam - Extremities Exam Extremities Exam: Full ROM, Normal Inspection. absent: Calf Tenderness, Pedal Edema - Back Exam Back Exam: absent: CVA tenderness (L), CVA tenderness (R) - Neurological Exam Neurological Exam: Alert, Awake, Normal Gait, Oriented x3 - Psychiatric Exam Psychiatric exam: Normal Affect, Normal Mood - Skin Skin Exam: Dry, Intact, Normal Color, Warm Additional comments: chronic scar of forearm of LUE Assessment and Plan - Assessment and Plan (Free Text) Assessment: Patient is a 47 year old male with past medical history of hemorrhoids, complaining of diffuse abdominal pain, bloody stool last week and weight loss, admitted for CT findings of large intraluminal cecal mass/polyp , GI and surgery on board; hemicolectomy scheduled for 07/13. Plan: Mass of cecum Abdomen/Pelvis CT with PO contrast (07/08/18): Large intraluminal mass in the cecum which may represent a large polyp or neoplasm. Histopathologic correlation is recommended. Abdomen/Pelvis CT with IV contrast (07/07/18): Possible mural thickening and luminal narrowing involving the ascending colon. Questionable intussusception of bowel loops along the ascending colon as well. Recommend repeat examination with oral contrast. Lipase (WNL) CT Chest - discoid atelectasis/linear fibrosis at left base CEA - 8.8 - GI consult - Dr Lydia Ibrahim - colonoscopy today shows likely malignant tumor in the cecum, biopsied - Surgery consult -Dr. Haskins- f/u GI recs and colonoscopy, plan for right hemicolectomy on Thursday 07/13; NPO past midnight Abdominal pain, resolving Secondary to cecal mass Toradol 30mg IVP Q6 PRN Hematochezia Does not report blood in stools at this time, last time was one week ago Stool Occult (07/08/18): Negative; repeat on 07/11/18: negative Prophylactic measure DVT: SCDs GI: protonix 40mg IVP QD encourage OOB and ambulation LR @ 110 mls/hr Dispo: As per surgery, planning for right hemicolectomy on 07/13. Will d/w with Dr. Gardner <Bogdan Gardner - Last Filed: 07/12/18 10:34> Objective - Vital Signs/Intake and Output Vital Signs (last 24 hours): Temp Pulse Resp BP Pulse Ox 98.1 F 65 20 119/74 97 07/12/18 08:20 07/12/18 08:20 07/12/18 08:20 07/12/18 08:20 07/12/18 08:20 - Medications Medications: Current Medications Erythromycin (Randy-Tab) 1,000 mg PO Q1H [facility]; Protocol Stop: 07/12/18 18:01 Erythromycin (Randy-Tab) 1,000 mg PO ONCE ONE; Protocol Stop: 07/13/18 03:01 Lactated Ringer's (Lactated Ringer's) 1,000 mls @ 110 mls/hr IV .Q9H6M [facility] Ketorolac Tromethamine (Toradol) 30 mg IVP Q6 PRN PRN Reason: Pain, Mild (1-3) Last Admin: 07/08/18 21:36 Dose: 30 mg Magnesium Citrate (Citrate Of Mag) 600 ml PO ONCE ONE Stop: 07/12/18 18:01 Morphine Sulfate (Morphine) 2 mg IV Q6 PRN PRN Reason: Pain, moderate (4-7) Neomycin Sulfate (Neomycin Tab) 1,000 mg PO Q1H [facility] Stop: 07/12/18 18:01 Neomycin Sulfate (Neomycin Tab) 1,000 mg PO ONCE ONE Stop: 07/13/18 03:01 Pantoprazole Sodium (Protonix Inj) 40 mg IVP DAILY [facility] Last Admin: 07/12/18 09:23 Dose: 40 mg - Labs Labs: 07/12/18 07:18 07/12/18 07:18 PT 13.1 SECONDS (9.7-12.2) H 07/10/18 11:33 INR 1.2 07/10/18 11:33 Attending/Attestation - Attestation I have personally seen and examined this patient.: Yes I have fully participated in the care of the patient.: Yes I have reviewed all pertinent clinical information, including history, physical exam and plan: Yes Notes (Text): Medical attending: Patient was seen and examined by me. Agree with the above note by the resident. The patient reported feeling well. He did not have any acute events overnight The patient is on CLD today and NPO after midnight for the surgery. As mentioned previously the patient had a cecal mass seen on CT scan. He has now had a colonscopy and it is concerning for malignancy. Tommoashlyn for the OR. Bogdan Gardner
--- NOTE | 2018-07-12 07:29 | CP.PCM.PN ---
<Kirsten Kiser-Barbyjacki - Last Filed: 07/12/18 07:27> Subjective - Date & Time of Evaluation Date of Evaluation: 07/12/18 Time of Evaluation: 07:27 - Subjective Subjective: Surgery: Dr. Cowan Doing well. No complaints at this time. Per nursing no issues overnight. Objective - Vital Signs/Intake and Output Vital Signs (last 24 hours): Temp Pulse Resp BP Pulse Ox 97.9 F 52 L 20 101/61 95 07/11/18 23:23 07/11/18 23:23 07/11/18 23:23 07/11/18 23:23 07/11/18 23:23 - Medications Medications: Current Medications Erythromycin (Randy-Tab) 1,000 mg PO Q1H [facility]; Protocol Stop: 07/12/18 18:01 Erythromycin (Randy-Tab) 1,000 mg PO ONCE ONE; Protocol Stop: 07/13/18 03:01 Lactated Ringer's (Lactated Ringer's) 1,000 mls @ 110 mls/hr IV .Q9H6M [facility] Ketorolac Tromethamine (Toradol) 30 mg IVP Q6 PRN PRN Reason: Pain, Mild (1-3) Last Admin: 07/08/18 21:36 Dose: 30 mg Magnesium Citrate (Citrate Of Mag) 600 ml PO ONCE ONE Stop: 07/12/18 18:01 Morphine Sulfate (Morphine) 2 mg IV Q6 PRN PRN Reason: Pain, moderate (4-7) Neomycin Sulfate (Neomycin Tab) 1,000 mg PO Q1H [facility] Stop: 07/12/18 18:01 Neomycin Sulfate (Neomycin Tab) 1,000 mg PO ONCE ONE Stop: 07/13/18 03:01 Pantoprazole Sodium (Protonix Inj) 40 mg IVP DAILY [facility] Last Admin: 07/11/18 09:24 Dose: 40 mg - Labs Labs: 07/11/18 07:45 07/11/18 07:45 PT 13.1 SECONDS (9.7-12.2) H 07/10/18 11:33 INR 1.2 07/10/18 11:33 - Constitutional Appears: Non-toxic, No Acute Distress - Eye Exam Eye Exam: Normal appearance - ENT Exam ENT Exam: Mucous Membranes Moist - Respiratory Exam Respiratory Exam: NORMAL BREATHING PATTERN - Cardiovascular Exam Cardiovascular Exam: REGULAR RHYTHM - GI/Abdominal Exam GI & Abdominal Exam: Soft. absent: Distended, Tenderness Assessment and Plan - Assessment and Plan (Free Text) Assessment: 47 y/o male w/ right colon mass Plan: -prep today -CLD today -NPO pmn -IVFs -f/u path -am labs -type and cross -further recs per Dr. Griffin PGY4 <Darrius Haskins - Last Filed: 07/14/18 07:42> Objective - Vital Signs/Intake and Output Vital Signs (last 24 hours): Temp Pulse Resp BP Pulse Ox 98.5 F 57 L 20 132/69 100 07/14/18 07:20 07/14/18 07:20 07/14/18 07:20 07/14/18 07:20 07/14/18 07:20 Intake and Output: 07/14/18 07/14/18 06:59 18:59 Intake Total 150 Output Total 1000 Balance -850 - Medications Medications: Current Medications Acetaminophen (Tylenol 325mg Tab) 650 mg PO Q6H PRN PRN Reason: Pain 1-3 or fever > 100.4 Enoxaparin Sodium (Lovenox) 40 mg SC DAILY [facility] Hydromorphone/Sodium Chloride (Dilaudid Thoracic Medicine Physician) 6 mg IV Q4H PRN; Protocol PRN Reason: Pain, severe (8-10) Last Admin: 07/13/18 19:52 Dose: 6 mg Lactated Ringer's (Lactated Ringer's) 1,000 mls @ 125 mls/hr IV .Q8H [facility] Last Admin: 07/14/18 05:53 Dose: 125 mls/hr Cefazolin Sodium (Ancef) 1 gm in 50 mls @ 100 mls/hr IVPB Q8H [facility]; Protocol Last Admin: 07/14/18 04:24 Dose: 100 mls/hr Ketorolac Tromethamine (Toradol) 30 mg IVP Q6 PRN PRN Reason: Pain, moderate (4-7) Last Admin: 07/13/18 19:29 Dose: 30 mg Ondansetron HCl (Zofran Inj) 4 mg IVP Q4 PRN PRN Reason: Nausea/Vomiting Pantoprazole Sodium (Protonix Inj) 40 mg IVP DAILY [facility] Last Admin: 07/13/18 09:27 Dose: 40 mg - Labs Labs: 07/14/18 06:26 07/14/18 06:26 PT 12.3 SECONDS (9.7-12.2) H 07/13/18 07:44 INR 1.1 07/13/18 07:44 APTT 32 SECONDS (21-34) 07/13/18 07:44 Assessment and Plan - Assessment and Plan (Free Text) Plan: All medical record entries made by the resident were at my direction. I have reviewed the chart and agree that the record accurately reflects my personal performance of the history, physical exam, and medical decision making.
[2018-07-12 07:43] LABS: BASO # 0.1 K/uL (0.0-0.2); BASO % 1.6 % (0.0-2.0); EOS # 0.1 K/uL (0.0-0.7); HEMOGLOBIN 14.4 g/dL (12.0-18.0); LYMPH # 1.3 K/uL (1.0-4.3); MEAN CELL VOLUME 90.3 fL (80.0-94.0); MEAN CORPUSCULAR HEMOGLOBIN 30.3 pg (27.0-31.0); MEAN CORPUSCULAR HGB CONC 33.5 g/dL (33.0-37.0); MONO # 0.5 K/uL (0.0-0.8); MONO % 11.4 % (0.0-10.0); NEUT # 2.1 K/uL (1.8-7.0); NRBC % 0.1 % (0.0-2.0); RBC 4.77 Mil/uL (4.40-5.90); RED CELL DISTRIBUTION WIDTH 13.3 % (11.5-14.5)
[2018-07-12 07:49] LABS: ALB/GLOB RATIO 1.4 (1.0-2.1); ALBUMIN 3.8 g/dL (3.5-5.0); ALT/SGPT 11 U/L (21-72); AST/SGOT 14 U/L (17-59); BLOOD UREA NITROGEN 7 mg/dL (9-20); CALCIUM 9.3 mg/dl (8.6-10.4); GFR NON-AFRICAN AMERICAN > 60
--- NOTE | 2018-07-12 10:15 | CP.PCM.PN ---
Subjective - Date & Time of Evaluation Date of Evaluation: 07/12/18 Time of Evaluation: 10:12 - Subjective Subjective: Gastroenterology Fellow/PGY6 Progress Note Patient resting comfortably in good spirits. Denies abdominal pain. Tolerating regular diet. Notes bowel movement yesterday. A 12-point review of systems negative except for as above. Objective - Vital Signs/Intake and Output Vital Signs (last 24 hours): Temp Pulse Resp BP Pulse Ox 98.1 F 65 20 119/74 97 07/12/18 08:20 07/12/18 08:20 07/12/18 08:20 07/12/18 08:20 07/12/18 08:20 - Medications Medications: Current Medications Erythromycin (Randy-Tab) 1,000 mg PO Q1H [facility]; Protocol Stop: 07/12/18 18:01 Erythromycin (Randy-Tab) 1,000 mg PO ONCE ONE; Protocol Stop: 07/13/18 03:01 Lactated Ringer's (Lactated Ringer's) 1,000 mls @ 110 mls/hr IV .Q9H6M [facility] Ketorolac Tromethamine (Toradol) 30 mg IVP Q6 PRN PRN Reason: Pain, Mild (1-3) Last Admin: 07/08/18 21:36 Dose: 30 mg Magnesium Citrate (Citrate Of Mag) 600 ml PO ONCE ONE Stop: 07/12/18 18:01 Morphine Sulfate (Morphine) 2 mg IV Q6 PRN PRN Reason: Pain, moderate (4-7) Neomycin Sulfate (Neomycin Tab) 1,000 mg PO Q1H [facility] Stop: 07/12/18 18:01 Neomycin Sulfate (Neomycin Tab) 1,000 mg PO ONCE ONE Stop: 07/13/18 03:01 Pantoprazole Sodium (Protonix Inj) 40 mg IVP DAILY [facility] Last Admin: 07/12/18 09:23 Dose: 40 mg - Labs Labs: 07/12/18 07:18 07/12/18 07:18 PT 13.1 SECONDS (9.7-12.2) H 07/10/18 11:33 INR 1.2 07/10/18 11:33 - Constitutional Appears: Non-toxic, No Acute Distress - Head Exam Head Exam: ATRAUMATIC, NORMOCEPHALIC - Eye Exam Eye Exam: EOMI, PERRL. absent: Scleral icterus Pupil Exam: PERRL. absent: Miosis, Mydriatic - ENT Exam ENT Exam: Mucous Membranes Moist, Normal Oropharynx - Neck Exam Neck Exam: Full ROM, Normal Inspection - Respiratory Exam Respiratory Exam: Clear to Ausculation Bilateral. absent: Rales, Rhonchi, Wheezes - Cardiovascular Exam Cardiovascular Exam: RRR, +S1, +S2. absent: Gallop, Rubs - GI/Abdominal Exam GI & Abdominal Exam: Soft, Normal Bowel Sounds. absent: Distended, Firm, Guarding, Rigid, Tenderness, Organomegaly, Rebound - Extremities Exam Extremities Exam: Normal Inspection. absent: Pedal Edema - Neurological Exam Neurological Exam: Alert, Awake - Psychiatric Exam Psychiatric exam: Normal Affect, Normal Mood - Skin Skin Exam: Dry, Intact, Normal Color, Warm Assessment and Plan - Assessment and Plan (Free Text) Assessment: 47 year old male with PMH of Polysubstance Abuse (marijuana, tobacco, alcohol), DVT/PE s/p Coumadin course presenting with right lower abdominal pain and unintentional weight loss. CT A/P showed large cecal mass and low attenuation liver lesions. POD1 colonoscopy showing large cecal mass s/p biopsy. Plan: -07/10 colonoscopy- 6cm partially circumferential cecal mass, pending pathology -surgery managing- resection planned for friday, 07/13 -tolerating regular diet, NPO after midnight -CT chest- no lesions noted -supportive care -thank you for opportunity to participate in the care of this patient
[2018-07-12] MEDS: Erythromycin Base 500 mg Tab PO SCH ×2 (17:54→18:57)
[2018-07-12] MEDS ORDERED: Magnesium Citrate Oral SOL (300 ml) PO ONE (18:00)
[2018-07-12] MEDS: Lactated Ringer's 1,000 ML IV SCH (22:54)
[2018-07-13] MEDS ORDERED: Erythromycin Base 500 mg Tab PO ONE (03:00)
--- NOTE | 2018-07-13 06:53 | CP.PCM.PN ---
<Mike Og - Last Filed: 07/13/18 13:17> Subjective - Date & Time of Evaluation Date of Evaluation: 07/13/18 Time of Evaluation: 07:10 - Subjective Subjective: medicine progress note for hospitalist Dr. Kohler. Pt seen and examined at bedside. Pt reports having not eaten anything since yesterday as he is scheduled for a right hemicolectomy today. Pt does report 1 x diarrhea this morning, non bloody. Pt reports no headaches, vision changes, chest pain, SOB, nausea, vomitting, abdominal pain, dysuria. Objective - Vital Signs/Intake and Output Vital Signs (last 24 hours): Temp Pulse Resp BP Pulse Ox 98 F 56 L 20 100/66 98 07/12/18 23:55 07/12/18 23:55 07/12/18 23:55 07/12/18 23:55 07/12/18 23:55 Intake and Output: 07/12/18 07/13/18 18:59 06:59 Intake Total 340 Balance 340 - Medications Medications: Current Medications Lactated Ringer's (Lactated Ringer's) 1,000 mls @ 110 mls/hr IV .Q9H6M [facility] Last Admin: 07/12/18 22:54 Dose: 110 mls/hr Ketorolac Tromethamine (Toradol) 30 mg IVP Q6 PRN PRN Reason: Pain, moderate (4-7) Last Admin: 07/12/18 21:45 Dose: 30 mg Morphine Sulfate (Morphine) 2 mg IV Q6 PRN PRN Reason: Pain, moderate (4-7) Ondansetron HCl (Zofran Inj) 4 mg IVP Q4 [facility] Last Admin: 07/13/18 04:05 Dose: 4 mg Pantoprazole Sodium (Protonix Inj) 40 mg IVP DAILY [facility] Last Admin: 07/12/18 09:23 Dose: 40 mg - Labs Labs: 07/12/18 07:18 07/12/18 07:18 PT 13.1 SECONDS (9.7-12.2) H 07/10/18 11:33 INR 1.2 07/10/18 11:33 - Constitutional Appears: Non-toxic, No Acute Distress - Head Exam Head Exam: NORMAL INSPECTION, NORMOCEPHALIC - Eye Exam Eye Exam: EOMI, Normal appearance - ENT Exam ENT Exam: Mucous Membranes Moist - Respiratory Exam Respiratory Exam: Clear to Ausculation Bilateral, NORMAL BREATHING PATTERN. absent: Rales, Rhonchi, Wheezes - Cardiovascular Exam Cardiovascular Exam: +S1, +S2 - GI/Abdominal Exam GI & Abdominal Exam: Soft, Normal Bowel Sounds. absent: Firm, Guarding, Rigid - Extremities Exam Extremities Exam: Full ROM, Normal Inspection. absent: Calf Tenderness, Pedal Edema - Back Exam Back Exam: absent: CVA tenderness (L), CVA tenderness (R) - Neurological Exam Neurological Exam: Alert, Awake, Normal Gait, Oriented x3 - Psychiatric Exam Psychiatric exam: Normal Affect, Normal Mood - Skin Skin Exam: Dry, Normal Color, Warm Additional comments: scar on left wrist Assessment and Plan - Assessment and Plan (Free Text) Assessment: Patient is a 47 year old male with past medical history of hemorrhoids, complaining of diffuse abdominal pain, bloody stool last week and weight loss, admitted for CT findings of large intraluminal cecal mass/polyp , GI and surgery on board; hemicolectomy scheduled for 07/13. Plan: Mass of cecum - Abdomen/Pelvis CT with PO contrast (07/08/18): Large intraluminal mass in the cecum which may represent a large polyp or neoplasm. Histopathologic - correlation is recommended. - Abdomen/Pelvis CT with IV contrast (07/07/18): Possible mural thickening and luminal narrowing involving the ascending colon. Questionable intussusception of bowel loops along the ascending colon as well. Recommend repeat examination with oral contrast. - Lipase (WNL) - CT Chest - discoid atelectasis/linear fibrosis at left base - CEA - 8.8 - GI consult - Dr Lydia Ibrahim - colonoscopy shows likely malignant tumor in the cecum, biopsied - Surgery consult -Dr. Haskins- f/u GI recs and colonoscopy, plan for right hemicolectomy on Thursday 07/13; NPO past midnight Abdominal pain, resolving Secondary to cecal mass Toradol 30mg IVP Q6 PRN Hematochezia Does not report blood in stools at this time, last time was one week ago Stool Occult (07/08/18): Negative; repeat on 07/11/18: negative Prophylactic measure DVT: SCDs GI: protonix 40mg IVP QD encourage OOB and ambulation LR @ 110 mls/hr Dispo: As per surgery, planning for right hemicolectomy on 07/13. <Shereen Kohler - Last Filed: 07/13/18 14:05> Objective - Vital Signs/Intake and Output Vital Signs (last 24 hours): Temp Pulse Resp BP Pulse Ox 97.5 F L 57 L 20 118/68 99 07/13/18 07:20 07/13/18 07:20 07/13/18 07:20 07/13/18 07:20 07/13/18 07:20 Intake and Output: 07/13/18 07/13/18 06:59 18:59 Intake Total 0 Balance 0 - Medications Medications: Current Medications Lactated Ringer's (Lactated Ringer's) 1,000 mls @ 110 mls/hr IV .Q9H6M [facility] Last Admin: 07/13/18 09:28 Dose: 110 mls/hr Ketorolac Tromethamine (Toradol) 30 mg IVP Q6 PRN PRN Reason: Pain, moderate (4-7) Last Admin: 07/12/18 21:45 Dose: 30 mg Morphine Sulfate (Morphine) 2 mg IV Q6 PRN PRN Reason: Pain, moderate (4-7) Ondansetron HCl (Zofran Inj) 4 mg IVP Q4 [facility] Last Admin: 07/13/18 08:17 Dose: 4 mg Pantoprazole Sodium (Protonix Inj) 40 mg IVP DAILY [facility] Last Admin: 07/13/18 09:27 Dose: 40 mg - Labs Labs: 07/13/18 07:44 07/13/18 07:44 PT 12.3 SECONDS (9.7-12.2) H 07/13/18 07:44 INR 1.1 07/13/18 07:44 APTT 32 SECONDS (21-34) 07/13/18 07:44 Attending/Attestation - Attestation I have personally seen and examined this patient.: Yes I have fully participated in the care of the patient.: Yes I have reviewed all pertinent clinical information, including history, physical exam and plan: Yes Notes (Text): Seen and examined by me with the resident. Patient has no complain.Going for surgery today
[2018-07-13 08:16] LABS: INR 1.1; PROTHROMBIN TIME 12.3 SECONDS (9.7-12.2)
[2018-07-13 08:22] LABS: BASO % 1.2 % (0.0-2.0); EOS # 0.1 K/uL (0.0-0.7); HEMOGLOBIN 14.5 g/dL (12.0-18.0); LYMPH % 25.8 % (20.0-40.0); MEAN CELL VOLUME 91.6 fL (80.0-94.0); MEAN CORPUSCULAR HEMOGLOBIN 30.6 pg (27.0-31.0); MEAN CORPUSCULAR HGB CONC 33.4 g/dL (33.0-37.0); MEAN PLATELET VOLUME 8.1 fL (7.2-11.7); MONO # 0.4 K/uL (0.0-0.8); MONO % 9.9 % (0.0-10.0); NEUT # 2.4 K/uL (1.8-7.0); NEUT % 61.1 % (50.0-75.0); NRBC % 0.1 % (0.0-2.0); RBC 4.73 Mil/uL (4.40-5.90); RED CELL DISTRIBUTION WIDTH 13.4 % (11.5-14.5); WHITE BLOOD COUNT 3.9 K/uL (4.8-10.8)
[2018-07-13 08:25] LABS: ALB/GLOB RATIO 1.5 (1.0-2.1); ALBUMIN 4.1 g/dL (3.5-5.0); ALT/SGPT 12 U/L (21-72); AST/SGOT 22 U/L (17-59); BLOOD UREA NITROGEN 7 mg/dL (9-20); CALCIUM 9.4 mg/dl (8.6-10.4); GFR NON-AFRICAN AMERICAN > 60
[2018-07-13] MEDS: Lactated Ringer's 1,000 ML IV SCH ×2 (09:28→21:22)
[2018-07-13] MEDS ORDERED: Propofol 10 mg/ml Inj (20 ML) ONE (12:21)
[2018-07-13] MEDS ORDERED: Midazolam 2 MG/2 ML VIAL ONE (12:22)
[2018-07-13] MEDS ORDERED: ceFAZolin 1 gm in NS 1 GM/100 ML BAG IVPB ONE (12:28)
[2018-07-13] MEDS ORDERED: metroNIDAZOLE IV 500 mg/100 ml 500 MG/100 ML BAG ONE (12:28)
[2018-07-13] MEDS ORDERED: Bupivacaine 0.5%/Epi 1:200,000 (10 ML SOL) ONE (12:47)
[2018-07-13] MEDS ORDERED: HYDROmorphone 0.5 mg/0.5 ml ISec IVP PRN (14:33)
[2018-07-13] MEDS ORDERED: Morphine 4 MG/ML VIAL ONE (16:27)
[2018-07-13] MEDS ORDERED: Lactated Ringer's 1,000 ML IV ONE (16:37)
[2018-07-13] MEDS ORDERED: Morphine Monoject Barrel PCA 1mg/ml IV PRN (16:38)
[2018-07-13] MEDS: HYDROmorphone 0.5 mg/0.5 ml ISec IVP PRN ×3 (16:44→17:53)
--- NOTE | 2018-07-13 16:51 | PCM.SURG1 ---
Surgeon's Initial Post Op Note - Surgeon's Notes Surgeon: Dr. Cowan Office Assistance: Dr. Kiser Type of Anesthesia: General Endo, Local Pre-Operative Diagnosis: cecal colon mass Operative Findings: colonic tattoo, well perfused bowel post resection and anastomosis, anastomosis patent Post-Operative Diagnosis: cecal colon mass Operation Performed: laparoscopic right hemicolectomy with ileocolic anastomosis Specimen/Specimens Removed: right colon, segment of mesentary, extra segment of transverse colon Estimated Blood Loss: EBL {In ML}: 50 Blood Products Given: N/A Drains Used: No Drains Post-Op Condition: Good Date of Surgery/Procedure: 07/13/18 Time of Surgery/Procedure: 16:51
[2018-07-13] MEDS: ceFAZolin 1 gm FROZEN Premix 1 GM/50 ML ML IVPB SCH (21:21)
[2018-07-13] MEDS: metroNIDAZOLE IV 500 mg/100 ml 500 MG/100 ML BAG IVPB SCH (22:14)
[2018-07-14] MEDS: ceFAZolin 1 gm FROZEN Premix 1 GM/50 ML ML IVPB SCH ×3 (04:24→19:47)
[2018-07-14] MEDS: metroNIDAZOLE IV 500 mg/100 ml 500 MG/100 ML BAG IVPB SCH (05:26)
[2018-07-14] MEDS: Lactated Ringer's 1,000 ML IV SCH ×3 (05:53→19:06)
[2018-07-14 06:42] LABS: BASO % 0.6 % (0.0-2.0); EOS % 0.3 % (0.0-4.0); HEMOGLOBIN 13.3 g/dL (12.0-18.0); LYMPH # 0.8 K/uL (1.0-4.3); LYMPH % 10.6 % (20.0-40.0); MEAN CELL VOLUME 89.8 fL (80.0-94.0); MEAN CORPUSCULAR HEMOGLOBIN 31.2 pg (27.0-31.0); MEAN CORPUSCULAR HGB CONC 34.7 g/dL (33.0-37.0); MEAN PLATELET VOLUME 7.6 fL (7.2-11.7); MONO # 0.7 K/uL (0.0-0.8); MONO % 9.6 % (0.0-10.0); NEUT # 6.1 K/uL (1.8-7.0); NEUT % 78.9 % (50.0-75.0); NRBC % 0.1 % (0.0-2.0); RBC 4.27 Mil/uL (4.40-5.90); RED CELL DISTRIBUTION WIDTH 13.4 % (11.5-14.5); WHITE BLOOD COUNT 7.7 K/uL (4.8-10.8)
--- NOTE | 2018-07-14 07:03 | CP.PCM.PN ---
<Mike Og - Last Filed: 07/14/18 10:58> Subjective - Date & Time of Evaluation Date of Evaluation: 07/14/18 Time of Evaluation: 07:25 - Subjective Subjective: Medicine progress note for hospitalist Dr. Kohler. Pt seen and examined at bedside. Pt is POD # 1 s/p right hemicolectomy. Pt reports minor pain/tenderness around incision sites but states he feels overal good. Pt denies having flatulence/bowel movement; howevr, denies nausea, vomiting, constipation. Pt denies headaches, vision changes, chest pain, SOB, fevers,chills. Objective - Vital Signs/Intake and Output Vital Signs (last 24 hours): Temp Pulse Resp BP Pulse Ox 98.5 F 56 L 18 129/74 99 07/14/18 04:58 07/14/18 04:58 07/14/18 04:58 07/14/18 04:58 07/14/18 04:58 Intake and Output: 07/14/18 07/14/18 06:59 18:59 Intake Total 150 Output Total 1000 Balance -850 - Medications Medications: Current Medications Acetaminophen (Tylenol 325mg Tab) 650 mg PO Q6H PRN PRN Reason: Pain 1-3 or fever > 100.4 Enoxaparin Sodium (Lovenox) 40 mg SC DAILY [facility] Hydromorphone/Sodium Chloride (Dilaudid Oil Expert) 6 mg IV Q4H PRN; Protocol PRN Reason: Pain, severe (8-10) Last Admin: 07/13/18 19:52 Dose: 6 mg Lactated Ringer's (Lactated Ringer's) 1,000 mls @ 125 mls/hr IV .Q8H [facility] Last Admin: 07/14/18 05:53 Dose: 125 mls/hr Cefazolin Sodium (Ancef) 1 gm in 50 mls @ 100 mls/hr IVPB Q8H [facility]; Protocol Last Admin: 07/14/18 04:24 Dose: 100 mls/hr Ketorolac Tromethamine (Toradol) 30 mg IVP Q6 PRN PRN Reason: Pain, moderate (4-7) Last Admin: 07/13/18 19:29 Dose: 30 mg Ondansetron HCl (Zofran Inj) 4 mg IVP Q4 PRN PRN Reason: Nausea/Vomiting Pantoprazole Sodium (Protonix Inj) 40 mg IVP DAILY [facility] Last Admin: 07/13/18 09:27 Dose: 40 mg - Labs Labs: 07/14/18 06:26 07/13/18 07:44 PT 12.3 SECONDS (9.7-12.2) H 07/13/18 07:44 INR 1.1 07/13/18 07:44 APTT 32 SECONDS (21-34) 07/13/18 07:44 - Constitutional Appears: Non-toxic, No Acute Distress - Head Exam Head Exam: NORMAL INSPECTION - Eye Exam Eye Exam: EOMI, Normal appearance - ENT Exam ENT Exam: Mucous Membranes Moist - Respiratory Exam Respiratory Exam: Clear to Ausculation Bilateral, NORMAL BREATHING PATTERN. absent: Rales, Rhonchi, Wheezes - Cardiovascular Exam Cardiovascular Exam: +S1, +S2. absent: Murmur - GI/Abdominal Exam GI & Abdominal Exam: Soft, Tenderness, Normal Bowel Sounds. absent: Firm, Guarding, Rigid Additional comments: 5 incision sites, dressing c/d/i, no erythema present, minor tenderness around incision site - Extremities Exam Extremities Exam: Full ROM. absent: Calf Tenderness, Pedal Edema - Back Exam Back Exam: absent: CVA tenderness (L), CVA tenderness (R) - Neurological Exam Neurological Exam: Alert, Awake, Normal Gait, Oriented x3 - Psychiatric Exam Psychiatric exam: Normal Affect, Normal Mood - Skin Skin Exam: Dry, Intact, Normal Color, Warm Assessment and Plan - Assessment and Plan (Free Text) Assessment: Patient is a 47 year old male with past medical history of hemorrhoids, complaining of diffuse abdominal pain, bloody stool last week and weight loss, admitted for CT findings of large intraluminal cecal mass/polyp , colonoscopy biopsy revealing tubulovillious ademoa, s/p Right hemicolectomy w/ileocolic anastomosis Plan: Mass of cecum Tubulovillous adenoma w/ focal high grade dysplasia - Abdomen/Pelvis CT with PO contrast (07/08/18): Large intraluminal mass in the cecum which may represent a large polyp or neoplasm. Histopathologic - correlation is recommended. - Abdomen/Pelvis CT with IV contrast (07/07/18): Possible mural thickening and luminal narrowing involving the ascending colon. Questionable intussusception of bowel loops along the ascending colon as well. Recommend repeat examination with oral contrast. - Lipase (WNL) - CT Chest - discoid atelectasis/linear fibrosis at left base - CEA - 8.8 - GI consult - Dr Lydia Ibrahim - colonoscopy shows likely malignant tumor in the cecum, biopsied - path results: tubulovillous adenoma w/ focal high grade dysplasia - Surgery consult -Dr. Haskins, s/p Right hemicolectomy w/ileocolic anastomosis - f/u path results - Will require follow up care at [facility] and set up with heme/onc Abdominal pain, resolving - post op currently - pain management per surgery - oxycodone 5 mg PO PRN Hematochezia - Resolved - Does not report blood in stools at this time, last time was one week ago - Stool Occult (07/08/18): Negative; repeat on 07/11/18: negative - stable H/H Prophylactic measure - DVT: SCDs, lovenox 40 SC daily - GI: protonix 40mg IVP daily - encourage OOB and ambulation - LR @ 110 mls/hr Dispo: Postop for Right hemicolectomy w/ileocolic anastomosis; will require set up with [facility] and referral to heme/onc <Shereen Kohler - Last Filed: 07/18/18 17:21> Objective - Vital Signs/Intake and Output Vital Signs (last 24 hours): Temp Pulse Resp BP Pulse Ox 99.4 F 80 20 113/80 98 07/16/18 07:35 07/16/18 07:35 07/16/18 07:35 07/16/18 07:35 07/16/18 07:35 - Labs Labs: 07/16/18 07:33 07/16/18 07:33 PT 12.3 SECONDS (9.7-12.2) H 07/13/18 07:44 INR 1.1 07/13/18 07:44 APTT 32 SECONDS (21-34) 07/13/18 07:44 Attending/Attestation - Attestation I have personally seen and examined this patient.: Yes I have fully participated in the care of the patient.: Yes I have reviewed all pertinent clinical information, including history, physical exam and plan: Yes Notes (Text): seen and examined. s/p Hemicolectomy,doing good I agree with the resident's documentation
[2018-07-14 07:35] VITALS: RESP 20
[2018-07-14 07:41] LABS: ALB/GLOB RATIO 1.4 (1.0-2.1); ALBUMIN 3.4 g/dL (3.5-5.0); ALT/SGPT 19 U/L (21-72); AST/SGOT 29 U/L (17-59); BLOOD UREA NITROGEN 7 mg/dL (9-20); CALCIUM 8.7 mg/dl (8.6-10.4); GFR NON-AFRICAN AMERICAN > 60
[2018-07-14] MEDS ORDERED: oxyCODONE 5 mg Immediate Release Tab PO PRN (09:32)
--- NOTE | 2018-07-14 09:37 | CP.PCM.PN ---
<Juanito Izaguirre - Last Filed: 07/14/18 09:34> Subjective - Date & Time of Evaluation Date of Evaluation: 07/14/18 Time of Evaluation: 09:35 - Subjective Subjective: Surgery Progress note- Dr. Cowan Patient seen and examined. No acute events overnight. pain well controlled on diludid RIVER RAT. NPO, plan to start CLD. Clayton catheter in place, making adequate urine. Dressings over incision x5, C/D/I no strikethrough. Denies, fevers, chills, chest pain, shortness of breath Objective - Vital Signs/Intake and Output Vital Signs (last 24 hours): Temp Pulse Resp BP Pulse Ox 98.5 F 57 L 20 132/69 100 07/14/18 07:20 07/14/18 07:20 07/14/18 07:20 07/14/18 07:20 07/14/18 07:20 Intake and Output: 07/14/18 07/14/18 06:59 18:59 Intake Total 150 Output Total 1000 Balance -850 - Medications Medications: Current Medications Acetaminophen (Tylenol 325mg Tab) 650 mg PO Q6H PRN PRN Reason: Pain 1-3 or fever > 100.4 Enoxaparin Sodium (Lovenox) 40 mg SC DAILY [facility] Hydromorphone HCl (Dilaudid) 0.5 mg IVP Q6H PRN PRN Reason: Pain, severe (8-10) Lactated Ringer's (Lactated Ringer's) 1,000 mls @ 125 mls/hr IV .Q8H [facility] Last Admin: 07/14/18 05:53 Dose: 125 mls/hr Cefazolin Sodium (Ancef) 1 gm in 50 mls @ 100 mls/hr IVPB Q8H [facility]; Protocol Last Admin: 07/14/18 04:24 Dose: 100 mls/hr Ketorolac Tromethamine (Toradol) 30 mg IVP Q6 PRN PRN Reason: Pain, moderate (4-7) Last Admin: 07/13/18 19:29 Dose: 30 mg Ondansetron HCl (Zofran Inj) 4 mg IVP Q4 PRN PRN Reason: Nausea/Vomiting Oxycodone HCl (Oxycodone Immediate Release Tab) 5 mg PO Q4 PRN PRN Reason: Pain, moderate (4-7) Pantoprazole Sodium (Protonix Inj) 40 mg IVP DAILY [facility] Last Admin: 07/13/18 09:27 Dose: 40 mg - Labs Labs: 07/14/18 06:26 07/14/18 06:26 PT 12.3 SECONDS (9.7-12.2) H 07/13/18 07:44 INR 1.1 07/13/18 07:44 APTT 32 SECONDS (21-34) 07/13/18 07:44 - Constitutional Appears: Non-toxic, No Acute Distress - Head Exam Head Exam: ATRAUMATIC - Eye Exam Eye Exam: EOMI - Respiratory Exam Respiratory Exam: NORMAL BREATHING PATTERN. absent: Accessory Muscle Use, Respiratory Distress - Cardiovascular Exam Cardiovascular Exam: REGULAR RHYTHM. absent: Bradycardia, Tachycardia - GI/Abdominal Exam GI & Abdominal Exam: Soft, Tenderness (appropriately tender around incisions). absent: Distended, Firm, Guarding, Rigid - Extremities Exam Extremities Exam: absent: Calf Tenderness - Neurological Exam Neurological Exam: Alert, Awake, Oriented x3 - Psychiatric Exam Psychiatric exam: Normal Affect - Skin Skin Exam: Intact, Warm Assessment and Plan - Assessment and Plan (Free Text) Assessment: 47M s/p Lap Right Hemicolectomy POD #1 Plan: - De-escalate pain regiment to PO pain meds - Start CLD - D/C clayton - Trial to void - OOB and ambulate - aggressive IS use - monitor bowel function - discussed w/ Dr. Vu PGy2 <Darrius Haskins - Last Filed: 07/15/18 06:22> Objective - Vital Signs/Intake and Output Vital Signs (last 24 hours): Temp Pulse Resp BP Pulse Ox 98.9 F 67 20 134/72 96 07/15/18 04:32 07/15/18 04:32 07/15/18 04:32 07/15/18 04:32 07/15/18 04:32 Intake and Output: 07/14/18 07/15/18 18:59 06:59 Intake Total 1400 Balance 1400 - Medications Medications: Current Medications Acetaminophen (Tylenol 325mg Tab) 650 mg PO Q6H PRN PRN Reason: Pain 1-3 or fever > 100.4 Acetaminophen (Tylenol 325mg Tab) 975 mg PO Q8 [facility] Stop: 07/16/18 06:01 Last Admin: 07/15/18 06:00 Dose: 975 mg Cyclobenzaprine HCl (Flexeril) 5 mg PO TID [facility] Last Admin: 07/14/18 19:40 Dose: 5 mg Enoxaparin Sodium (Lovenox) 40 mg SC DAILY [facility] Last Admin: 07/14/18 10:35 Dose: 40 mg Hydromorphone HCl (Dilaudid) 0.5 mg IVP Q6H PRN PRN Reason: Pain, severe (8-10) Last Admin: 07/14/18 21:45 Dose: 0.5 mg Lactated Ringer's (Lactated Ringer's) 1,000 mls @ 125 mls/hr IV .Q8H [facility] Last Admin: 07/15/18 03:53 Dose: 125 mls/hr Lidocaine (Lidoderm) 1 ea TD DAILY [facility] Last Admin: 07/14/18 19:40 Dose: 1 ea Ondansetron HCl (Zofran Inj) 4 mg IVP Q4 PRN PRN Reason: Nausea/Vomiting Oxycodone HCl (Oxycodone Immediate Release Tab) 5 mg PO Q4 PRN PRN Reason: Pain, moderate (4-7) Last Admin: 07/15/18 00:37 Dose: 5 mg Pantoprazole Sodium (Protonix Inj) 40 mg IVP DAILY [facility] Last Admin: 07/14/18 10:34 Dose: 40 mg - Labs Labs: 07/14/18 06:26 07/14/18 06:26 PT 12.3 SECONDS (9.7-12.2) H 07/13/18 07:44 INR 1.1 07/13/18 07:44 APTT 32 SECONDS (21-34) 07/13/18 07:44 Assessment and Plan - Assessment and Plan (Free Text) Plan: All medical record entries made by the resident were at my direction. I have reviewed the chart and agree that the record accurately reflects my personal performance of the history, physical exam, and medical decision making,
[2018-07-14] MEDS: Enoxaparin 40 mg Syringe SC SCH (10:35)
[2018-07-14] MEDS: HYDROmorphone 0.5 mg/0.5 ml ISec IVP PRN ×2 (14:37→21:45)
[2018-07-14] MEDS ORDERED: HYDROmorphone 1 mg/ml ISec IVP STA (16:44)
--- NOTE | 2018-07-14 19:09 | OP ---
PROCEDURE DATE: 07/13/2018 SURGEON: Darrius Cowan MD [employer] SUPERVISOR: Margi ANESTHESIA: General. PREOPERATIVE DIAGNOSIS: Cecal mass consistent with colon cancer. POSTOPERATIVE DIAGNOSIS: Cecal mass consistent with colon cancer. PROCEDURE: Laparoscopic right hemicolectomy. INDICATION: This is a 47-year-old male who presented with abdominal pain and weight loss and was admitted to [facility]. His evaluation included a CAT scan which showed a large cecal mass. The patient underwent a colonoscopy with biopsy and tattooing for surgical management. After informed consent was given and the risks explained, the patient consented to the surgery and was brought for a laparoscopic right hemicolectomy with ileocolic anastomosis. DESCRIPTION OF PROCEDURE: The patient was transferred to the OR, placed in the supine position. He was orotracheally intubated, and general anesthesia was induced. His abdomen was fairly prepped and draped. He had an infraumbilical 5 mm port placed after the abdomen was insufflated using a Veress needle technique. Then, the abdomen was explored. There was no obvious extracolonic disease and then we placed two additional 5 ports on the patient's left side above and below the umbilicus and then we placed a 12-mm port along the right lower quadrant, all under direct visualization. The cecum was grasped with a bowel retractor and then we proceeded to divide the white line of Toldt mobilizing the cecum from right to left and then as we reflected the colon from right to left, we were able to visualize the ureter and the major vasculature being careful not to injure any of those structures. We mobilized the right colon all the way up to the hepatic flexure and then at this point, we then came down inferiorly and then we mobilized the appendix, divided the appendiceal artery of the mesoappendix and then we mobilized the distal ileum circumferentially, divided just few centimeters proximal to the ileocecal valve. We then used an [place] endovascular KAI with blue load. We divided the distal ileum. Then, we continued to mobilize the colon. We went through the mesentery and we then continued to mobilize the right colon and then we were able to circumferentially skeletonize or dissect out or visualize the ileocolic artery and then we divided that with an endovascular KAI using a vascular white load and then we continued to mobilize or take down the colon, the hepatic flexure. We then mobilized the colon to the transverse colon. We the transverse colon from the duodenum and we used an endovascular KAI with white load. We then continued to divide the mesentery with as many lymph nodes as we could see. The lymph nodes were visualized blue from the prior tattooing, which we can see the tattoo garcia at the proximal right colon at the cecum. We then continued our operation. Dissection to the transverse colon and then we used endovascular KAI with a blue load to divide the transverse colon. Specimen was moved entirely free. We then moved the specimen to the side and we continued to mobilize the transverse colon to the gastrocolic ligament. Then using our graspers and intestinal grasper, we then located the distal ileum, brought in approximation to the transverse colon and at this point in time, we made a small transverse 4 cm incision in the upper midline abdomen to remove our specimen. We then also brought out our transverse colon as well as the distal ileum. We externalized the tranverse colon and distal ileum, and in a [id number] fashion and then we used endovascular KAI with a blue load to create our anastomosis in a [id number] fashion after we placed 3 alignment sutures of the transverse colon and the ileum. We made a small colotomy and a small enterotomy and then we placed endovascular KAI inside, fired it with a 60 mm blue load and then we used an additional 60 mm blue load to close our enterotomy sites. There was a stock of lumen between our fingers. It appeared adequate, at least 3-4 cm in length and then we oversewn the staple line with intraoperative soaks. The specimen was dropped back in the abdomen and then we proceeded to introduce a specimen bag and placed the right colon into the specimen bag and removed it through a small transverse incision. We then closed the incision with staple clips and towel clips. We insufflated the abdomen. We checked the anastomosis and appeared to be satisfactory. We then placed the suture to close the mesentery using a 2-0 silk and SH needle laparoscopically, and then we placed a clip historian dramatic arts to secure the suture. The suture was removed with the needle. We irrigated the abdomen, aspirate any small amount of blood. At this point in time, our sponge, lap, and instrument count were correct. Specimen was well oriented. There was no obvious bleeding. We then removed our ports under direct visualization without any evidence of bleeding. Then, we removed our ports and the we closed the specimen site with [id number] 0 Vicryl and UR6 needle. We likewise closed the 12-mm port in the right lower quadrant with single interrupted 0 Vicryl. Estimated blood loss was about 100 mL. Specimen was sent to pathology. We did not leave a drain. Darrius Cowan M.D. cc: Tumor Registry MTDD
[2018-07-14] MEDS: Lidocaine 5% Patch TD SCH (19:40)
[2018-07-15] MEDS ORDERED: HYDROmorphone 0.5 mg/0.5 ml ISec IVP ONE (02:00)
[2018-07-15] MEDS: Lactated Ringer's 1,000 ML IV SCH ×5 (03:53→21:19)
--- NOTE | 2018-07-15 06:56 | CP.PCM.PN ---
<Mike Og M - Last Filed: 07/15/18 13:50> Subjective - Date & Time of Evaluation Date of Evaluation: 07/15/18 Time of Evaluation: 07:00 - Subjective Subjective: Medicine progress note for hospitalist Dr. Kohler. Pt seen and examined at bedside. Pt is POD # 2 s/p right hemicolectomy. Overnight patient reported abdominal pain requiring 1mg diludid. In AM, pt lying in bed, reporting return of abdominal pain. Denies fevers, chills, flatulence, passage of bowel movement. Pt reports pain as cramp like, more so in the RLQ. D enies chest pain, SOB, headaches, vision changes. PT tolerating liquid diet without issues. Objective - Vital Signs/Intake and Output Vital Signs (last 24 hours): Temp Pulse Resp BP Pulse Ox 98.9 F 67 20 134/72 96 07/15/18 04:32 07/15/18 04:32 07/15/18 04:32 07/15/18 04:32 07/15/18 04:32 Intake and Output: 07/14/18 07/15/18 18:59 06:59 Intake Total 2400 Balance 2400 - Medications Medications: Current Medications Acetaminophen (Tylenol 325mg Tab) 650 mg PO Q6H PRN PRN Reason: Pain 1-3 or fever > 100.4 Acetaminophen (Tylenol 325mg Tab) 975 mg PO Q8 [facility] Stop: 07/16/18 06:01 Last Admin: 07/15/18 06:00 Dose: 975 mg Cyclobenzaprine HCl (Flexeril) 5 mg PO TID [facility] Last Admin: 07/14/18 19:40 Dose: 5 mg Enoxaparin Sodium (Lovenox) 40 mg SC DAILY [facility] Last Admin: 07/14/18 10:35 Dose: 40 mg Hydromorphone HCl (Dilaudid) 0.5 mg IVP Q6H PRN PRN Reason: Pain, severe (8-10) Last Admin: 07/14/18 21:45 Dose: 0.5 mg Lactated Ringer's (Lactated Ringer's) 1,000 mls @ 125 mls/hr IV .Q8H [facility] Last Admin: 07/15/18 03:53 Dose: 125 mls/hr Lidocaine (Lidoderm) 1 ea TD DAILY [facility] Last Admin: 07/14/18 19:40 Dose: 1 ea Ondansetron HCl (Zofran Inj) 4 mg IVP Q4 PRN PRN Reason: Nausea/Vomiting Oxycodone HCl (Oxycodone Immediate Release Tab) 5 mg PO Q4 PRN PRN Reason: Pain, moderate (4-7) Last Admin: 07/15/18 00:37 Dose: 5 mg Pantoprazole Sodium (Protonix Inj) 40 mg IVP DAILY [facility] Last Admin: 07/14/18 10:34 Dose: 40 mg - Labs Labs: 07/14/18 06:26 07/14/18 06:26 PT 12.3 SECONDS (9.7-12.2) H 07/13/18 07:44 INR 1.1 07/13/18 07:44 APTT 32 SECONDS (21-34) 07/13/18 07:44 - Constitutional Appears: Non-toxic, No Acute Distress - Head Exam Head Exam: NORMAL INSPECTION - Eye Exam Eye Exam: EOMI, Normal appearance - ENT Exam ENT Exam: Mucous Membranes Moist - Respiratory Exam Respiratory Exam: Clear to Ausculation Bilateral, NORMAL BREATHING PATTERN. absent: Rales, Rhonchi, Wheezes - Cardiovascular Exam Cardiovascular Exam: +S1, +S2. absent: Murmur - GI/Abdominal Exam GI & Abdominal Exam: Soft, Tenderness, Normal Bowel Sounds. absent: Firm, Guarding, Rigid, Rebound Additional comments: incision site bandage X 5, clean, dry, intact no erythema present - Extremities Exam Extremities Exam: Full ROM, Normal Inspection. absent: Calf Tenderness, Pedal Edema - Neurological Exam Neurological Exam: Alert, Awake, Oriented x3 - Psychiatric Exam Psychiatric exam: Normal Affect, Normal Mood - Skin Skin Exam: Dry, Intact, Normal Color, Warm Assessment and Plan - Assessment and Plan (Free Text) Assessment: Patient is a 47 year old male with past medical history of hemorrhoids, complaining of diffuse abdominal pain, bloody stool last week and weight loss, admitted for CT findings of large intraluminal cecal mass/polyp , colonoscopy b iopsy revealing tubulovillious ademoa, s/p Right hemicolectomy w/ileocolic anastomosis Plan: Mass of cecum Tubulovillous adenoma w/ focal high grade dysplasia - Abdomen/Pelvis CT with PO contrast (07/08/18): Large intraluminal mass in the cecum which may represent a large polyp or neoplasm. Histopathologic - correlation is recommended. - Abdomen/Pelvis CT with IV contrast (07/07/18): Possible mural thickening and luminal narrowing involving the ascending colon. Questionable intussusception of bowel loops along the ascending colon as well. Recommend repeat examination with oral contrast. - Lipase (WNL) - CT Chest - discoid atelectasis/linear fibrosis at left base - CEA - 8.8 - GI consult - Dr Lydia Ibrahim - colonoscopy shows likely malignant tumor in the cecum, biopsied - path results: tubulovillous adenoma w/ focal high grade dysplasia - Surgery consult -Dr. Haskins, s/p Right hemicolectomy w/ileocolic anastomosis - f/u path results - likely will require GI follow up outpatient pending path results - Will require follow up care at [facility] and set up with heme/onc Abdominal pain, resolving - post op currently - pain management per surgery - oxycodone 5 mg PO PRN Hematochezia - Resolved - Does not report blood in stools at this time, last time was one week ago - Stool Occult (07/08/18): Negative; repeat on 07/11/18: negative - stable H/H Prophylactic measure - DVT: SCDs, lovenox 40 SC daily - GI: protonix 40mg IVP daily - encourage OOB and ambulation - LR @ 110 mls/hr Dispo: Postop for Right hemicolectomy w/ileocolic anastomosis; will require set up with [facility] and referral to GI; pending path results <Shereen Kohler - Last Filed: 07/16/18 17:43> Objective - Vital Signs/Intake and Output Vital Signs (last 24 hours): Temp Pulse Resp BP Pulse Ox 99.4 F 80 20 113/80 98 07/16/18 07:35 07/16/18 07:35 07/16/18 07:35 07/16/18 07:35 07/16/18 07:35 Intake and Output: 07/16/18 07/16/18 06:59 18:59 Intake Total 2400 Output Total 1 Balance 2399 - Labs Labs: 07/16/18 07:33 07/16/18 07:33 PT 12.3 SECONDS (9.7-12.2) H 07/13/18 07:44 INR 1.1 07/13/18 07:44 APTT 32 SECONDS (21-34) 07/13/18 07:44 Attending/Attestation - Attestation I have personally seen and examined this patient.: Yes I have fully participated in the care of the patient.: Yes I have reviewed all pertinent clinical information, including history, physical exam and plan: Yes Notes (Text): Seen and examined by me. s/p right hemicolectomy. 07/16/18 17:33
[2018-07-15] MEDS: HYDROmorphone 0.5 mg/0.5 ml ISec IVP PRN (07:47)
--- NOTE | 2018-07-15 08:12 | CP.PCM.PN ---
<Juanito Izaguirre - Last Filed: 07/15/18 08:13> Subjective - Date & Time of Evaluation Date of Evaluation: 07/15/18 Time of Evaluation: 05:00 - Subjective Subjective: Surgery Progress Note- Dr. Cowan Patient seen and examined. de-escalated from dilaudid HISTOLOGIST pump yesterday. Patient was in pain overnight, received total of 1mg dilaudid for pain control. On CLD, tolerating, denies nausea vomiting. No bowel function as of this AM. Abd dressing C/D/I minimal strike through. + OOB and ambulating, using incentive spirometer Objective - Vital Signs/Intake and Output Vital Signs (last 24 hours): Temp Pulse Resp BP Pulse Ox 98.8 F 61 20 132/82 97 07/15/18 07:25 07/15/18 07:25 07/15/18 07:25 07/15/18 07:25 07/15/18 07:25 Intake and Output: 07/15/18 07/15/18 06:59 18:59 Intake Total 2400 Balance 2400 - Medications Medications: Current Medications Acetaminophen (Tylenol 325mg Tab) 650 mg PO Q6H PRN PRN Reason: Pain 1-3 or fever > 100.4 Cyclobenzaprine HCl (Flexeril) 5 mg PO TID [facility] Last Admin: 07/14/18 19:40 Dose: 5 mg Enoxaparin Sodium (Lovenox) 40 mg SC DAILY [facility] Last Admin: 07/14/18 10:35 Dose: 40 mg Hydromorphone HCl (Dilaudid) 0.5 mg IVP Q6H PRN PRN Reason: Pain, severe (8-10) Last Admin: 07/15/18 07:47 Dose: 0.5 mg Lactated Ringer's (Lactated Ringer's) 1,000 mls @ 125 mls/hr IV .Q8H [facility] Last Admin: 07/15/18 03:53 Dose: 125 mls/hr Lidocaine (Lidoderm) 1 ea TD DAILY [facility] Last Admin: 07/14/18 19:40 Dose: 1 ea Ondansetron HCl (Zofran Inj) 4 mg IVP Q4 PRN PRN Reason: Nausea/Vomiting Oxycodone HCl (Oxycodone Immediate Release Tab) 5 mg PO Q4 PRN PRN Reason: Pain, moderate (4-7) Last Admin: 07/15/18 00:37 Dose: 5 mg Pantoprazole Sodium (Protonix Inj) 40 mg IVP DAILY [facility] Last Admin: 07/14/18 10:34 Dose: 40 mg - Labs Labs: 07/14/18 06:26 07/14/18 06:26 PT 12.3 SECONDS (9.7-12.2) H 07/13/18 07:44 INR 1.1 07/13/18 07:44 APTT 32 SECONDS (21-34) 07/13/18 07:44 - Constitutional Appears: Non-toxic, No Acute Distress - Head Exam Head Exam: ATRAUMATIC - Eye Exam Eye Exam: EOMI. absent: Scleral icterus - ENT Exam ENT Exam: Mucous Membranes Moist - Respiratory Exam Respiratory Exam: NORMAL BREATHING PATTERN. absent: Accessory Muscle Use, Respiratory Distress - Cardiovascular Exam Cardiovascular Exam: REGULAR RHYTHM. absent: Bradycardia, Tachycardia - GI/Abdominal Exam GI & Abdominal Exam: Soft, Tenderness (tenderness in Right lateral abdomen). absent: Distended, Firm, Guarding, Rigid Additional comments: incision dressing C/D?I with minimal strike through - Extremities Exam Extremities Exam: absent: Calf Tenderness - Neurological Exam Neurological Exam: Alert, Awake, Oriented x3 - Psychiatric Exam Psychiatric exam: Normal Affect - Skin Skin Exam: Intact, Normal Color Assessment and Plan - Assessment and Plan (Free Text) Assessment: 47M s/p Lap Right Hemicolectomy POD #2 Plan: - adjust Pain regiment; will ad [facility] toradol d/c 975 tylenol - CLD; will continue for now, monitor bowel function - OOB and ambulate - aggressive IS use - discussed w/ Dr. Vu PGY2 <Darrius Haskins - Last Filed: 07/15/18 14:50> Objective - Vital Signs/Intake and Output Vital Signs (last 24 hours): Temp Pulse Resp BP Pulse Ox 98.8 F 61 20 132/82 97 07/15/18 07:25 07/15/18 07:25 07/15/18 07:25 07/15/18 07:25 07/15/18 07:25 Intake and Output: 07/15/18 07/15/18 06:59 18:59 Intake Total 2400 Balance 2400 - Medications Medications: Current Medications Acetaminophen (Tylenol 325mg Tab) 650 mg PO Q6H PRN PRN Reason: Pain 1-3 or fever > 100.4 Cyclobenzaprine HCl (Flexeril) 5 mg PO TID [facility] Last Admin: 07/15/18 12:59 Dose: 5 mg Enoxaparin Sodium (Lovenox) 40 mg SC DAILY [facility] Last Admin: 07/15/18 10:57 Dose: 40 mg Hydromorphone HCl (Dilaudid) 0.5 mg IVP Q6H PRN PRN Reason: Pain, severe (8-10) Last Admin: 07/15/18 07:47 Dose: 0.5 mg Lactated Ringer's (Lactated Ringer's) 1,000 mls @ 125 mls/hr IV .Q8H [facility] Last Admin: 07/15/18 10:57 Dose: 125 mls/hr Ketorolac Tromethamine (Toradol) 30 mg IVP Q6 [facility] Stop: 07/17/18 00:01 Last Admin: 07/15/18 12:54 Dose: 30 mg Lidocaine (Lidoderm) 1 ea TD DAILY [facility] Last Admin: 07/15/18 09:30 Dose: 1 ea Ondansetron HCl (Zofran Inj) 4 mg IVP Q4 PRN PRN Reason: Nausea/Vomiting Oxycodone HCl (Oxycodone Immediate Release Tab) 5 mg PO Q4 PRN PRN Reason: Pain, moderate (4-7) Last Admin: 07/15/18 00:37 Dose: 5 mg Pantoprazole Sodium (Protonix Inj) 40 mg IVP DAILY [facility] Last Admin: 07/15/18 09:30 Dose: 40 mg - Labs Labs: 07/15/18 08:08 07/15/18 08:08 PT 12.3 SECONDS (9.7-12.2) H 07/13/18 07:44 INR 1.1 07/13/18 07:44 APTT 32 SECONDS (21-34) 07/13/18 07:44 Assessment and Plan - Assessment and Plan (Free Text) Assessment: All medical record entries made by the resident were at my direction. I have reviewed the chart and agree that the record accurately reflects my personal performance of the history, physical exam, and medical decision making.
[2018-07-15 08:16] LABS: BASO % 0.4 % (0.0-2.0); EOS % 0.6 % (0.0-4.0); HEMOGLOBIN 14.2 g/dL (12.0-18.0); LYMPH # 1.3 K/uL (1.0-4.3); LYMPH % 24.1 % (20.0-40.0); MEAN CELL VOLUME 90.1 fL (80.0-94.0); MEAN CORPUSCULAR HEMOGLOBIN 31.1 pg (27.0-31.0); MEAN CORPUSCULAR HGB CONC 34.5 g/dL (33.0-37.0); MEAN PLATELET VOLUME 7.9 fL (7.2-11.7); MONO # 0.8 K/uL (0.0-0.8); MONO % 13.8 % (0.0-10.0); NEUT # 3.4 K/uL (1.8-7.0); NEUT % 61.1 % (50.0-75.0); NRBC % 0.1 % (0.0-2.0); RBC 4.58 Mil/uL (4.40-5.90); RED CELL DISTRIBUTION WIDTH 12.9 % (11.5-14.5); WHITE BLOOD COUNT 5.6 K/uL (4.8-10.8)
[2018-07-15 08:30] LABS: ALB/GLOB RATIO 1.4 (1.0-2.1); ALBUMIN 3.9 g/dL (3.5-5.0); ALT/SGPT 19 U/L (21-72); AST/SGOT 26 U/L (17-59); BLOOD UREA NITROGEN 6 mg/dL (9-20); CALCIUM 9.5 mg/dl (8.6-10.4); GFR NON-AFRICAN AMERICAN > 60
[2018-07-15] MEDS: Lidocaine 5% Patch TD SCH (09:30)
[2018-07-15] MEDS: Enoxaparin 40 mg Syringe SC SCH (10:57)
[2018-07-16] MEDS: Lactated Ringer's 1,000 ML IV SCH (05:43)
--- NOTE | 2018-07-16 06:59 | CP.PCM.PN ---
Subjective - Date & Time of Evaluation Date of Evaluation: 07/16/18 Time of Evaluation: 06:59 - Subjective Subjective: PGY-1 Medicine Progress Note for Dr. Kohler Objective - Vital Signs/Intake and Output Vital Signs (last 24 hours): Temp Pulse Resp BP Pulse Ox 98.5 F 65 20 126/78 95 07/16/18 05:40 07/16/18 05:40 07/16/18 05:40 07/16/18 05:40 07/16/18 05:40 Intake and Output: 07/15/18 07/16/18 18:59 06:59 Intake Total 2400 Balance 2400 - Medications Medications: Current Medications Acetaminophen (Tylenol 325mg Tab) 650 mg PO Q6H PRN PRN Reason: Pain 1-3 or fever > 100.4 Cyclobenzaprine HCl (Flexeril) 5 mg PO TID [facility] Last Admin: 07/15/18 18:41 Dose: 5 mg Enoxaparin Sodium (Lovenox) 40 mg SC DAILY [facility] Last Admin: 07/15/18 10:57 Dose: 40 mg Hydromorphone HCl (Dilaudid) 0.5 mg IVP Q6H PRN PRN Reason: Pain, severe (8-10) Last Admin: 07/15/18 07:47 Dose: 0.5 mg Lactated Ringer's (Lactated Ringer's) 1,000 mls @ 125 mls/hr IV .Q8H [facility] Last Admin: 07/16/18 05:43 Dose: 125 mls/hr Ketorolac Tromethamine (Toradol) 30 mg IVP Q6 [facility] Stop: 07/17/18 00:01 Last Admin: 07/16/18 05:44 Dose: 30 mg Lidocaine (Lidoderm) 1 ea TD DAILY [facility] Last Admin: 07/15/18 09:30 Dose: 1 ea Ondansetron HCl (Zofran Inj) 4 mg IVP Q4 PRN PRN Reason: Nausea/Vomiting Oxycodone HCl (Oxycodone Immediate Release Tab) 5 mg PO Q4 PRN PRN Reason: Pain, moderate (4-7) Last Admin: 07/15/18 00:37 Dose: 5 mg Pantoprazole Sodium (Protonix Inj) 40 mg IVP DAILY [facility] Last Admin: 07/15/18 09:30 Dose: 40 mg - Labs Labs: 07/15/18 08:08 07/15/18 08:08 PT 12.3 SECONDS (9.7-12.2) H 07/13/18 07:44 INR 1.1 07/13/18 07:44 APTT 32 SECONDS (21-34) 07/13/18 07:44
[2018-07-16 07:50] LABS: BASO # 0.1 K/uL (0.0-0.2); EOS # 0.2 K/uL (0.0-0.7); EOS % 3.3 % (0.0-4.0); HEMOGLOBIN 14.2 g/dL (12.0-18.0); LYMPH # 1.2 K/uL (1.0-4.3); LYMPH % 21.7 % (20.0-40.0); MEAN CELL VOLUME 91.1 fL (80.0-94.0); MEAN CORPUSCULAR HEMOGLOBIN 31.4 pg (27.0-31.0); MEAN CORPUSCULAR HGB CONC 34.5 g/dL (33.0-37.0); MEAN PLATELET VOLUME 7.8 fL (7.2-11.7); MONO # 0.8 K/uL (0.0-0.8); MONO % 14.6 % (0.0-10.0); NEUT # 3.2 K/uL (1.8-7.0); NEUT % 59.4 % (50.0-75.0); NRBC % 0.1 % (0.0-2.0); RBC 4.51 Mil/uL (4.40-5.90); RED CELL DISTRIBUTION WIDTH 13.3 % (11.5-14.5); WHITE BLOOD COUNT 5.3 K/uL (4.8-10.8)
--- NOTE | 2018-07-16 07:57 | CP.PCM.PN ---
<Juanito Izaguirre - Last Filed: 07/16/18 07:54> Subjective - Date & Time of Evaluation Date of Evaluation: 07/16/18 Time of Evaluation: 07:54 - Subjective Subjective: Surgery Progress note- Dr. Cowan Pain significantly improved. dressings taken down. Incisions w/ rubio C/D/I. + Flatus, denies BM. + OOB and ambulating. Denies fevers, chills chest pain, shortness of breath. Objective - Vital Signs/Intake and Output Vital Signs (last 24 hours): Temp Pulse Resp BP Pulse Ox 98.5 F 65 20 126/78 95 07/16/18 05:40 07/16/18 05:40 07/16/18 05:40 07/16/18 05:40 07/16/18 05:40 Intake and Output: 07/16/18 07/16/18 06:59 18:59 Intake Total 2400 Output Total 1 Balance 2399 - Medications Medications: Current Medications Acetaminophen (Tylenol 325mg Tab) 650 mg PO Q6H PRN PRN Reason: Pain 1-3 or fever > 100.4 Cyclobenzaprine HCl (Flexeril) 5 mg PO TID [facility] Last Admin: 07/15/18 18:41 Dose: 5 mg Enoxaparin Sodium (Lovenox) 40 mg SC DAILY [facility] Last Admin: 07/15/18 10:57 Dose: 40 mg Hydromorphone HCl (Dilaudid) 0.5 mg IVP Q6H PRN PRN Reason: Pain, severe (8-10) Last Admin: 07/15/18 07:47 Dose: 0.5 mg Ketorolac Tromethamine (Toradol) 30 mg IVP Q6 [facility] Stop: 07/17/18 00:01 Last Admin: 07/16/18 05:44 Dose: 30 mg Lidocaine (Lidoderm) 1 ea TD DAILY [facility] Last Admin: 07/15/18 09:30 Dose: 1 ea Ondansetron HCl (Zofran Inj) 4 mg IVP Q4 PRN PRN Reason: Nausea/Vomiting Oxycodone HCl (Oxycodone Immediate Release Tab) 5 mg PO Q4 PRN PRN Reason: Pain, moderate (4-7) Last Admin: 07/15/18 00:37 Dose: 5 mg Pantoprazole Sodium (Protonix Inj) 40 mg IVP DAILY [facility] Last Admin: 07/15/18 09:30 Dose: 40 mg - Labs Labs: 07/15/18 08:08 07/15/18 08:08 PT 12.3 SECONDS (9.7-12.2) H 07/13/18 07:44 INR 1.1 07/13/18 07:44 APTT 32 SECONDS (21-34) 07/13/18 07:44 - Constitutional Appears: Non-toxic, No Acute Distress - Eye Exam Eye Exam: EOMI. absent: Scleral icterus - ENT Exam ENT Exam: Mucous Membranes Moist - Respiratory Exam Respiratory Exam: NORMAL BREATHING PATTERN. absent: Accessory Muscle Use, Respiratory Distress - Cardiovascular Exam Cardiovascular Exam: absent: Bradycardia, Tachycardia - GI/Abdominal Exam GI & Abdominal Exam: Distended (improved from yesterday), Soft, Tenderness (mildly tender around incisions). absent: Firm, Guarding, Rigid - Neurological Exam Neurological Exam: Alert, Awake, Oriented x3 - Psychiatric Exam Psychiatric exam: Normal Affect - Skin Skin Exam: Intact, Warm Assessment and Plan - Assessment and Plan (Free Text) Assessment: 47M s/p Lap Right Hemicolectomy POD #3 Plan: - pain control PRN - advance to soft diet - OOB and ambulate - aggressive IS use - further recs per Dr. Vu PGY2 <Darrius Haskins - Last Filed: 07/16/18 15:25> Objective - Vital Signs/Intake and Output Vital Signs (last 24 hours): Temp Pulse Resp BP Pulse Ox 99.4 F 80 20 113/80 98 07/16/18 07:35 07/16/18 07:35 07/16/18 07:35 07/16/18 07:35 07/16/18 07:35 Intake and Output: 07/16/18 07/16/18 06:59 18:59 Intake Total 2400 Output Total 1 Balance 2399 - Labs Labs: 07/16/18 07:33 07/16/18 07:33 PT 12.3 SECONDS (9.7-12.2) H 07/13/18 07:44 INR 1.1 07/13/18 07:44 APTT 32 SECONDS (21-34) 07/13/18 07:44 Assessment and Plan - Assessment and Plan (Free Text) Assessment: All medical record entries made by the resident were at my direction. I have reviewed the chart and agree that the record accurately reflects my personal performance of the history, physical exam, and medical decision making. Plan: All medical record entries made by the resident were at my direction. I have reviewed the chart and agree that the record accurately reflects my personal performance of the history, physical exam, and medical decision making.
[2018-07-16 08:05] VITALS: BP 113/80; PULSE 80; TEMP 99.4; O2SAT 98
[2018-07-16 08:23] LABS: ALB/GLOB RATIO 1.3 (1.0-2.1); ALBUMIN 3.8 g/dL (3.5-5.0); ALT/SGPT 20 U/L (21-72); AST/SGOT 25 U/L (17-59); BLOOD UREA NITROGEN 7 mg/dL (9-20); CALCIUM 9.6 mg/dl (8.6-10.4); GFR NON-AFRICAN AMERICAN > 60
--- NOTE | 2018-07-16 09:27 | CP.PCM.DIS ---
<Gianni Weller - Last Filed: 07/16/18 11:49> Provider - Provider Date of Admission: 07/10/18 13:26 Attending physician: Shereen Kohler MD Consults: 07/08/18 16:52 Physician Consult Routine Comment: Consulting Provider: Darrius Haskins Consulting Physician: Darrius Haskins Reason for Consult: Large intraluminal mass in the cecum, possibly a polyp or neoplasm Additional Comments: Hx of diffuse mid-abdominal pain for the past 3 years Time Spent in preparation of Discharge (in minutes): 40 Diagnosis - Discharge Diagnosis (1) Abdominal pain Status: Acute (2) Mass of cecum Status: Acute Hospital Course - Lab Results Lab Results: Most Recent Lab Values WBC 5.3 K/uL (4.8-10.8) 07/16/18 07:33 RBC 4.51 Mil/uL (4.40-5.90) 07/16/18 07:33 Hgb 14.2 g/dL (12.0-18.0) 07/16/18 07:33 Hct 41.1 % (35.0-51.0) 07/16/18 07:33 MCV 91.1 fL (80.0-94.0) 07/16/18 07:33 MCH 31.4 pg (27.0-31.0) H 07/16/18 07:33 MCHC 34.5 g/dL (33.0-37.0) 07/16/18 07:33 RDW 13.3 % (11.5-14.5) 07/16/18 07:33 Plt Count 203 K/uL (130-400) 07/16/18 07:33 MPV 7.8 fL (7.2-11.7) 07/16/18 07:33 Neut % (Auto) 59.4 % (50.0-75.0) 07/16/18 07:33 Lymph % (Auto) 21.7 % (20.0-40.0) 07/16/18 07:33 Dare % (Auto) 14.6 % (0.0-10.0) H 07/16/18 07:33 Eos % (Auto) 3.3 % (0.0-4.0) 07/16/18 07:33 Baso % (Auto) 1.0 % (0.0-2.0) 07/16/18 07:33 Neut # (Auto) 3.2 K/uL (1.8-7.0) 07/16/18 07:33 Lymph # (Auto) 1.2 K/uL (1.0-4.3) 07/16/18 07:33 Dare # (Auto) 0.8 K/uL (0.0-0.8) 07/16/18 07:33 Eos # (Auto) 0.2 K/uL (0.0-0.7) 07/16/18 07:33 Baso # (Auto) 0.1 K/uL (0.0-0.2) 07/16/18 07:33 PT 12.3 SECONDS (9.7-12.2) H 07/13/18 07:44 INR 1.1 07/13/18 07:44 APTT 32 SECONDS (21-34) 07/13/18 07:44 pO2 32 mm/Hg (30-55) 07/08/18 10:55 VBG pH 7.35 (7.32-7.43) 07/08/18 10:55 VBG pCO2 48 mmHg (40-60) 07/08/18 10:55 VBG HCO3 24.1 mmol/L 07/08/18 10:55 VBG Total CO2 28.0 mmol/L (22-28) 07/08/18 10:55 VBG O2 Sat (Calc) 72.9 % (40-65) H 07/08/18 10:55 VBG Base Excess 0.3 mmol/L (0.0-2.0) 07/08/18 10:55 VBG Potassium 3.6 mmol/L (3.6-5.2) 07/08/18 10:55 Sodium 140.0 mmol/l (132-148) 07/08/18 10:55 Chloride 109.0 mmol/L (98-107) H 07/08/18 10:55 Glucose 81 mg/dl (75-110) 07/08/18 10:55 Lactate 1.1 mmol/L (0.7-2.1) 07/08/18 10:55 Sodium 139 mmol/L (132-148) 07/16/18 07:33 Potassium 4.3 mmol/L (3.6-5.2) 07/16/18 07:33 Chloride 103 mmol/L (98-107) 07/16/18 07:33 Carbon Dioxide 28 mmol/L (22-30) 07/16/18 07:33 Anion Gap 12 (10-20) 07/16/18 07:33 BUN 7 mg/dL (9-20) L 07/16/18 07:33 Creatinine 0.9 mg/dL (0.8-1.5) 07/16/18 07:33 Est GFR ( Amer) > 60 07/16/18 07:33 Est GFR (Non-Af Amer) > 60 07/16/18 07:33 POC Glucose (mg/dL) 117 mg/dL (65-110) H 07/15/18 11:03 Random Glucose 101 mg/dL (75-110) 07/16/18 07:33 Calcium 9.6 mg/dl (8.6-10.4) 07/16/18 07:33 Phosphorus 2.9 mg/dL (2.5-4.5) 07/16/18 07:33 Magnesium 1.7 mg/dL (1.6-2.3) 07/16/18 07:33 Total Bilirubin 1.3 mg/dL (0.2-1.3) 07/16/18 07:33 AST 25 U/L (17-59) 07/16/18 07:33 ALT 20 U/L (21-72) L 07/16/18 07:33 Alkaline Phosphatase 56 U/L (38-126) 07/16/18 07:33 Total Protein 6.7 g/dL (6.3-8.3) 07/16/18 07:33 Albumin 3.8 g/dL (3.5-5.0) 07/16/18 07:33 Globulin 2.9 gm/dL (2.2-3.9) 07/16/18 07:33 Albumin/Globulin Ratio 1.3 (1.0-2.1) 07/16/18 07:33 Lipase 149 U/L (23-300) 07/08/18 11:20 Carcinoembryonic Ag 8.8 ng/mL (0-3.0) H 07/09/18 17:22 Venous Blood Potassium 3.6 mmol/L (3.6-5.2) 07/08/18 10:55 Urine Color Yellow (YELLOW) 07/08/18 12:48 Urine Clarity Clear (Clear) 07/08/18 12:48 Urine pH 6.0 (5.0-8.0) 07/08/18 12:48 Ur Specific [place] 1.008 (1.003-1.030) 07/08/18 12:48 Urine Protein Negative mg/dL (NEGATIVE) 07/08/18 12:48 Urine Glucose (UA) Normal mg/dL (Normal) 07/08/18 12:48 Urine Ketones Negative mg/dL (NEGATIVE) 07/08/18 12:48 Urine Blood Negative (NEGATIVE) 07/08/18 12:48 Urine Nitrate Negative (NEGATIVE) 07/08/18 12:48 Urine Bilirubin Negative (NEGATIVE) 07/08/18 12:48 Urine Urobilinogen Normal mg/dL (0.2-1.0) 07/08/18 12:48 Ur Leukocyte Esterase Neg Yesika/uL (Negative) 07/08/18 12:48 Urine WBC (Auto) 1 /hpf (0-5) 07/08/18 12:48 Ur Squamous Epith Cells < 1 /hpf (0-5) 07/08/18 12:48 Stool Occult Blood Negative (NEGATIVE) 07/11/18 17:22 Urine Opiates Screen Negative (NEGATIVE) 07/08/18 12:48 Urine Methadone Screen Negative (NEGATIVE) 07/08/18 12:48 Ur Barbiturates Screen Negative (NEGATIVE) 07/08/18 12:48 Ur Phencyclidine Scrn Negative (NEGATIVE) 07/08/18 12:48 Ur Amphetamines Screen Negative (NEGATIVE) 07/08/18 12:48 U Benzodiazepines Scrn Negative (NEGATIVE) 07/08/18 12:48 U Oth Cocaine Metabols Negative (NEGATIVE) 07/08/18 12:48 U Cannabinoids Screen Positive (NEGATIVE) H 07/08/18 12:48 Blood Type B POSITIVE 07/13/18 07:44 Blood Type Confirm B POSITIVE 07/10/18 17:00 Antibody Screen Negative 07/13/18 07:44 - Hospital Course Hospital Course: HPI: Patient is a 47 year old male with past medical Stage 4 hemorrhoid, sickle cell trait and PE (2011), who presents to the ED with complaints of diffuse intermittent mid-abdominal pain that has been ongoing for 3 years. Patient describes the pain as a 10/10 "punching feeling" that is intermittent and localized to the mid-abdominal and more towards the right side. Patient reports whenever he gets the pain, he exercises (running, jogging, core strengthening) in order to get rid of the pain; "it is like the pain is telling me to run". In addition, patient intermittently takes OTC Tylenol and ASA for pain control. He reports that he has not been able to keep food down regularly for the past 2 years and believes he has lost approximately 20-25 lbs unintentionally over the past 3 years. P. Patient admits to diarrhea (different caliber of stool) every weekend for the past 1 year, especially after meals and noted bloating after intake of spicy foods. Patient admits to intermittent hematochezia (bloody stool and blood in the toilet bowl) and increase urinary urgency. Upon ROS, patient admits to progressive fatigue and dizziness but denies fever, chills, nausea, vomiting, chest pain, palpitations, shortness of breath. Patient states that he was seen at [facility] approximately 2 years ago and nothing was found on exam or diagnostic work-up. The following is a summary of hospital course. For full detail, please refer to EMR: Mass of cecum Tubulovillous adenoma w/ focal high grade dysplasia - Abdomen/Pelvis CT with PO contrast (07/08/18): Large intraluminal mass in the cecum which may represent a large polyp or neoplasm. Histopathologic - correlation is recommended. - Abdomen/Pelvis CT with IV contrast (07/07/18): Possible mural thickening and luminal narrowing involving the ascending colon. Questionable intussusception of bowel loops along the ascending colon as well. Recommend repeat examination with oral contrast. - Lipase (WNL) - CT Chest - discoid atelectasis/linear fibrosis at left base - CEA - 8.8 - GI consult - Dr Lydia Ibrahim - colonoscopy shows likely malignant tumor in the cecum, biopsied - path results: tubulovillous adenoma w/ focal high grade dysplasia - Surgery consult -Dr. Haskins, s/p Right hemicolectomy w/ileocolic anastomosis - f/u path results - likely will require GI follow up outpatient pending path results - Will require follow up care at [facility] and set up with heme/onc Abdominal pain, resolved - post op currently - pain management per surgery - oxycodone 5 mg PO PRN Hematochezia - Resolved - Does not report blood in stools at this time, last time was one week ago - Stool Occult (07/08/18): Negative; repeat on 07/11/18: negative - stable H/H Prophylactic measure - DVT: SCDs, lovenox 40 SC daily - GI: protonix 40mg IVP daily - Out of bed and ambulation On discharge: Patient is stable for discharge per Dr. Kohler. Patient should follow up at the [facility] within 1 week of discharge. Location: [address] [place] [address]. Please call and make an appointment for follow up. You will also require a GI follow up for future colonoscopies. Please follow up with Dr. Haskins within 1 week for pathology results. Located at [address] [place] [address]. Please call and make an appointment for follow up. Patient may take OTC Tylenol or NSAIDs (Motrin, Advil) as needed for pain relief. If any of the symptoms return/worsen, please return to your nearest medical facility. - Date & Time of H&P Date of H&P: 07/16/18 Time of H&P: 11:50 Discharge Exam - Head Exam Head Exam: ATRAUMATIC, NORMAL INSPECTION, NORMOCEPHALIC - Eye Exam Eye Exam: EOMI, Normal appearance, PERRL Pupil Exam: NORMAL ACCOMODATION - ENT Exam ENT Exam: Mucous Membranes Moist, Normal Exam - Neck Exam Neck exam: Full Rom, Normal Inspection - Respiratory Exam Respiratory Exam: Clear to PA & Lateral, NORMAL BREATHING PATTERN, UNREMARKABLE. absent: Accessory Muscle Use, Respiratory Distress - Cardiovascular Exam Cardiovascular Exam: REGULAR RHYTHM, +S1, +S2 - GI/Abdominal Exam GI & Abdominal Exam: Normal Bowel Sounds, Soft, Unremarkable Additional comments: incision site bandage X 5, clean, dry, intact no erythema present - Extremities Exam Extremities exam: normal capillary refill, normal inspection, pedal pulses present - Back Exam Back exam: NORMAL INSPECTION - Neurological Exam Neurological exam: Alert, CN II-XII Intact, Normal Gait, Oriented x3 - Psychiatric Exam Psychiatric exam: Normal Affect, Normal Mood - Skin Skin Exam: Dry, Intact, Normal Color, Warm Discharge Plan - Follow Up Plan Condition: FAIR Disposition: HOME/ ROUTINE Instructions: Colectomy, Partial and Total, (DC), Acute Abdomen (Belly Pain), Adult (DC), Managing Pain After Surgery Additional Instructions: Patient is stable for discharge per Dr. Kohler. Patient should follow up at the [facility] within 1 week of discharge. Location: [address] [place] [address]. Please call and make an appointment for follow up. You will also require a GI follow up for future colonoscopies. Please follow up with Dr. Haskins within 1 week for pathology results. Located at [address] [place] [id number]. Please call and make an appointment for follow up. Patient may take OTC Tylenol or NSAIDs (Motrin, Advil) as needed for pain relief. If any of the symptoms return/worsen, please return to your nearest medical facility. Referrals: [facility] [Outside] <Shereen Kohler - Last Filed: 07/16/18 17:32> Provider - Provider Date of Admission: 07/10/18 13:26 Attending physician: Shereen Kohler MD Consults: 07/08/18 16:52 Physician Consult Routine Comment: Consulting Provider: Darrius Haskins Consulting Physician: Darrius Haskins Reason for Consult: Large intraluminal mass in the cecum, possibly a polyp or neoplasm Additional Comments: Hx of diffuse mid-abdominal pain for the past 3 years Hospital Course - Lab Results Lab Results: Most Recent Lab Values WBC 5.3 K/uL (4.8-10.8) 07/16/18 07:33 RBC 4.51 Mil/uL (4.40-5.90) 07/16/18 07:33 Hgb 14.2 g/dL (12.0-18.0) 07/16/18 07:33 Hct 41.1 % (35.0-51.0) 07/16/18 07:33 MCV 91.1 fL (80.0-94.0) 07/16/18 07:33 MCH 31.4 pg (27.0-31.0) H 07/16/18 07:33 MCHC 34.5 g/dL (33.0-37.0) 07/16/18 07:33 RDW 13.3 % (11.5-14.5) 07/16/18 07:33 Plt Count 203 K/uL (130-400) 07/16/18 07:33 MPV 7.8 fL (7.2-11.7) 07/16/18 07:33 Neut % (Auto) 59.4 % (50.0-75.0) 07/16/18 07:33 Lymph % (Auto) 21.7 % (20.0-40.0) 07/16/18 07:33 Dare % (Auto) 14.6 % (0.0-10.0) H 07/16/18 07:33 Eos % (Auto) 3.3 % (0.0-4.0) 07/16/18 07:33 Baso % (Auto) 1.0 % (0.0-2.0) 07/16/18 07:33 Neut # (Auto) 3.2 K/uL (1.8-7.0) 07/16/18 07:33 Lymph # (Auto) 1.2 K/uL (1.0-4.3) 07/16/18 07:33 Dare # (Auto) 0.8 K/uL (0.0-0.8) 07/16/18 07:33 Eos # (Auto) 0.2 K/uL (0.0-0.7) 07/16/18 07:33 Baso # (Auto) 0.1 K/uL (0.0-0.2) 07/16/18 07:33 PT 12.3 SECONDS (9.7-12.2) H 07/13/18 07:44 INR 1.1 07/13/18 07:44 APTT 32 SECONDS (21-34) 07/13/18 07:44 pO2 32 mm/Hg (30-55) 07/08/18 10:55 VBG pH 7.35 (7.32-7.43) 07/08/18 10:55 VBG pCO2 48 mmHg (40-60) 07/08/18 10:55 VBG HCO3 24.1 mmol/L 07/08/18 10:55 VBG Total CO2 28.0 mmol/L (22-28) 07/08/18 10:55 VBG O2 Sat (Calc) 72.9 % (40-65) H 07/08/18 10:55 VBG Base Excess 0.3 mmol/L (0.0-2.0) 07/08/18 10:55 VBG Potassium 3.6 mmol/L (3.6-5.2) 07/08/18 10:55 Sodium 140.0 mmol/l (132-148) 07/08/18 10:55 Chloride 109.0 mmol/L (98-107) H 07/08/18 10:55 Glucose 81 mg/dl (75-110) 07/08/18 10:55 Lactate 1.1 mmol/L (0.7-2.1) 07/08/18 10:55 Sodium 139 mmol/L (132-148) 07/16/18 07:33 Potassium 4.3 mmol/L (3.6-5.2) 07/16/18 07:33 Chloride 103 mmol/L (98-107) 07/16/18 07:33 Carbon Dioxide 28 mmol/L (22-30) 07/16/18 07:33 Anion Gap 12 (10-20) 07/16/18 07:33 BUN 7 mg/dL (9-20) L 07/16/18 07:33 Creatinine 0.9 mg/dL (0.8-1.5) 07/16/18 07:33 Est GFR ( Amer) > 60 07/16/18 07:33 Est GFR (Non-Af Amer) > 60 07/16/18 07:33 POC Glucose (mg/dL) 117 mg/dL (65-110) H 07/15/18 11:03 Random Glucose 101 mg/dL (75-110) 07/16/18 07:33 Calcium 9.6 mg/dl (8.6-10.4) 07/16/18 07:33 Phosphorus 2.9 mg/dL (2.5-4.5) 07/16/18 07:33 Magnesium 1.7 mg/dL (1.6-2.3) 07/16/18 07:33 Total Bilirubin 1.3 mg/dL (0.2-1.3) 07/16/18 07:33 AST 25 U/L (17-59) 07/16/18 07:33 ALT 20 U/L (21-72) L 07/16/18 07:33 Alkaline Phosphatase 56 U/L (38-126) 07/16/18 07:33 Total Protein 6.7 g/dL (6.3-8.3) 07/16/18 07:33 Albumin 3.8 g/dL (3.5-5.0) 07/16/18 07:33 Globulin 2.9 gm/dL (2.2-3.9) 07/16/18 07:33 Albumin/Globulin Ratio 1.3 (1.0-2.1) 07/16/18 07:33 Lipase 149 U/L (23-300) 07/08/18 11:20 Carcinoembryonic Ag 8.8 ng/mL (0-3.0) H 07/09/18 17:22 Venous Blood Potassium 3.6 mmol/L (3.6-5.2) 07/08/18 10:55 Urine Color Yellow (YELLOW) 07/08/18 12:48 Urine Clarity Clear (Clear) 07/08/18 12:48 Urine pH 6.0 (5.0-8.0) 07/08/18 12:48 Ur Specific [place] 1.008 (1.003-1.030) 07/08/18 12:48 Urine Protein Negative mg/dL (NEGATIVE) 07/08/18 12:48 Urine Glucose (UA) Normal mg/dL (Normal) 07/08/18 12:48 Urine Ketones Negative mg/dL (NEGATIVE) 07/08/18 12:48 Urine Blood Negative (NEGATIVE) 07/08/18 12:48 Urine Nitrate Negative (NEGATIVE) 07/08/18 12:48 Urine Bilirubin Negative (NEGATIVE) 07/08/18 12:48 Urine Urobilinogen Normal mg/dL (0.2-1.0) 07/08/18 12:48 Ur Leukocyte Esterase Neg Yesika/uL (Negative) 07/08/18 12:48 Urine WBC (Auto) 1 /hpf (0-5) 07/08/18 12:48 Ur Squamous Epith Cells < 1 /hpf (0-5) 07/08/18 12:48 Stool Occult Blood Negative (NEGATIVE) 07/11/18 17:22 Urine Opiates Screen Negative (NEGATIVE) 07/08/18 12:48 Urine Methadone Screen Negative (NEGATIVE) 07/08/18 12:48 Ur Barbiturates Screen Negative (NEGATIVE) 07/08/18 12:48 Ur Phencyclidine Scrn Negative (NEGATIVE) 07/08/18 12:48 Ur Amphetamines Screen Negative (NEGATIVE) 07/08/18 12:48 U Benzodiazepines Scrn Negative (NEGATIVE) 07/08/18 12:48 U Oth Cocaine Metabols Negative (NEGATIVE) 07/08/18 12:48 U Cannabinoids Screen Positive (NEGATIVE) H 07/08/18 12:48 Blood Type B POSITIVE 07/13/18 07:44 Blood Type Confirm B POSITIVE 07/10/18 17:00 Antibody Screen Negative 07/13/18 07:44 Attending/Attestation - Attestation I have personally seen and examined this patient.: Yes I have fully participated in the care of the patient.: Yes I have reviewed all pertinent clinical information, including history, physical exam and plan: Yes Notes (Text): seen and examined today. tolerating diet,no complian Discharge plan discussed with the patient. he will follow with Dr Corbin out patient. Follow our clinic to check your biopsy report and to follow GI follow up
[2018-07-16] MEDS: Enoxaparin 40 mg Syringe SC SCH (10:07)
[2018-07-16] MEDS: Lidocaine 5% Patch TD SCH (10:07)
== END 2018-07-16 13:05 | disposition home or self-care (01) | DRG 221 ==
LOC: C.ER 10:14 → C.3T 16:03 → C.6T 21:57 → OBSVTOIN 07-10 13:26
PROVIDERS: ADMIT Hospitalist; ATTEND Internal Medicine
PROC: 0DBH8ZX Excision of Cecum, Via Natural or Artificial Opening Endoscopic, Diagnostic (ICD-10-PCS; 2018-07-10)
PROC: 0DBL4ZZ Excision of Transverse Colon, Percutaneous Endoscopic Approach (ICD-10-PCS; 2018-07-13)
PROC: 0DBV4ZZ Excision of Mesentery, Percutaneous Endoscopic Approach (ICD-10-PCS; 2018-07-13)
PROC: 0DTF4ZZ Resection of Right Large Intestine, Percutaneous Endoscopic Approach (ICD-10-PCS; principal; 2018-07-13 12:00)
DX: C18.2 Malignant neoplasm of ascending colon (principal); C18.0 Malignant neoplasm of cecum; I10 Essential (primary) hypertension; J98.11 Atelectasis; K76.9 Liver disease, unspecified; E11.9 Type 2 diabetes mellitus without complications; F12.90 Cannabis use, unspecified, uncomplicated; D57.3 Sickle-cell trait; K64.3 Fourth degree hemorrhoids; F17.210 Nicotine dependence, cigarettes, uncomplicated; G89.29 Other chronic pain; Z86.711 Personal history of pulmonary embolism; Z86.718 Personal history of other venous thrombosis and embolism

== ENCOUNTER 2018-08-05 11:58 | Emergency (ER) | payer OTHER ==
[2018-08-05 12:12] VITALS: BP 106/72; PULSE 67; TEMP 98.4; O2SAT 97
--- NOTE | 2018-08-05 12:31 | C.PDOC ---
History Of Present Illness 47yo male s/p laparoscopic right hemicolectomy on 07/14/[address] Haskins presents for post-operative staple removal. Patient denies incision pain or drainage, fever/chills, abdominal pain, chest pain, shortness of breath. Time Seen by Provider: 08/05/18 12:10 Chief Complaint (Nursing): Abnormal Skin Integrity History Per: Patient History/Exam Limitations: no limitations Location Of Injury: Anterior: Abdomen Past Medical History Vital Signs: Last Vital Signs Temp 98.4 F 08/05/18 12:07 Pulse 67 08/05/18 12:07 Resp 20 08/05/18 12:07 BP 106/72 08/05/18 12:07 Pulse Ox 97 08/05/18 12:07 Primary Care Provider: Non [facility] Provider, - Medical History PMH: Pulmonary Embolism Denies: Chronic Kidney Disease - [facility] Procedures EXCISION OF CECUM, ENDO, DIAGN (07/10/18) EXCISION OF MESENTERY, PERCUTANEOUS ENDOSCOPIC APPROACH (07/10/18) EXCISION OF TRANSVERSE COLON, PERC ENDO APPROACH (07/10/18) RESECTION OF RIGHT LARGE INTESTINE, PERC ENDO APPROACH (07/10/18) Family History: States: Unknown Family Hx - Social History Hx Alcohol Use: No Hx Substance Use: Yes (cannabis) - Immunization History Hx Tetanus Toxoid Vaccination: No Hx Influenza Vaccination: No Hx Pneumococcal Vaccination: No Review Of Systems Except As Marked, All Systems Reviewed And Found Negative. Constitutional: Negative for: Fever, Chills Cardiovascular: Negative for: Chest Pain Respiratory: Negative for: Shortness of Breath Gastrointestinal: Negative for: Nausea, Abdominal Pain Skin: Negative for: Bruising Neurological: Negative for: Headache Physical Exam - Physical Exam Appears: Well, Non-toxic, No Acute Distress Skin: Normal Color, Warm, Dry, Other (Surgical rubio in place over 4 closed incisions. No erythema, drainage, or tenderness) Head: Atraumatic, Normacephalic Eye(s): bilateral: Normal Inspection Oral Mucosa: Moist Neck: Supple Chest: Symmetrical Gastrointestinal/Abdominal: Soft, No Tenderness Neurological/Psych: Oriented x3, Normal Speech ED Course And Treatment O2 Sat by Pulse Oximetry: 97 Medical Decision Making Medical Decision Making: enrollment services vice president paged for removal. 12:50: patient expressed he was in a hurry to get somewhere, requesting to leave. Incision appear clean/dry/intact. Discussed need to remove rubio soon, recommend follow up with surgery for staple removal within next 2 days. Disposition Counseled Patient/Family Regarding: Need For Followup - Disposition Disposition: HOME/ ROUTINE Disposition Time: 12:53 Condition: GOOD Additional Instructions: Please follow up with surgery in 1-2 days for removal of your rubio. Return to ED for worsening pain, incisional bleeding or drainage Forms: [employer] (Georgian) - Clinical Impression Clinical Impression: Presence of surgical incision
[2018-08-05 13:10] VITALS: RESP 18
== END 2018-08-05 13:10 | disposition home or self-care (01) ==
LOC: C.ER 11:58
DX: Z48.02 Encounter for removal of sutures (principal); Z86.711 Personal history of pulmonary embolism

== ENCOUNTER 2018-08-08 08:50 | Emergency (ER) | payer OTHER ==
[2018-08-08 09:05] VITALS: BP 127/78; PULSE 68; RESP 17; TEMP 97.8; O2SAT 97
--- NOTE | 2018-08-08 09:40 | C.PDOC ---
History Of Present Illness 47 year old male presents to the ED for wound check and suture removal status post laparoscopic colectomy 2 weeks ago. Reports he has been unable to follow up with Surgeon. Patient was seen 2 days ago in the ED for same presentation. Denies any pain, swelling, redness, fever, discharge, or any signs of infection. States he is eating normally. Time Seen by Provider: 08/08/18 09:05 Chief Complaint (Nursing): Suture/Staple Removal History Per: Patient History/Exam Limitations: no limitations Onset/Duration Of Symptoms: Days Ago Current Symptoms Are (Timing): Still Present Location Of Injury: Anterior: Abdomen (surgical wound ) Past Medical History Reviewed: Historical Data, Nursing Documentation, Vital Signs Vital Signs: Last Vital Signs Temp 97.8 F 08/08/18 08:59 Pulse 68 08/08/18 08:59 Resp 17 08/08/18 08:59 BP 127/78 08/08/18 08:59 Pulse Ox 97 08/08/18 08:59 Primary Care Provider: FAMILY PROVIDER,NO - Medical History PMH: Pulmonary Embolism Denies: Chronic Kidney Disease Other Surgeries: Hx of surgeries - [facility] Procedures EXCISION OF CECUM, ENDO, DIAGN (07/10/18) EXCISION OF MESENTERY, PERCUTANEOUS ENDOSCOPIC APPROACH (07/10/18) EXCISION OF TRANSVERSE COLON, PERC ENDO APPROACH (07/10/18) RESECTION OF RIGHT LARGE INTESTINE, PERC ENDO APPROACH (07/10/18) Family History: States: No Known Family Hx - Social History Hx Alcohol Use: No Hx Substance Use: No - Immunization History Hx Tetanus Toxoid Vaccination: Yes Hx Influenza Vaccination: Yes Hx Pneumococcal Vaccination: No Review Of Systems Except As Marked, All Systems Reviewed And Found Negative. Constitutional: Negative for: Fever, Chills Skin: Positive for: Other (wound check, no redness, no swelling, no discharge ) Physical Exam - Physical Exam Appears: Non-toxic, No Acute Distress Skin: Warm, Dry, No Rash Head: Normacephalic Eye(s): bilateral: Normal Inspection Nose: Normal Oral Mucosa: Moist Neck: Supple Chest: Symmetrical Cardiovascular: Rhythm Regular Respiratory: Normal Breath Sounds, No Rales, No Rhonchi, No Wheezing Gastrointestinal/Abdominal: Soft, No Tenderness, No Distention, No Guarding, No Rebound, Other (Well-healed wound to abdomen, rubio in place ) Neurological/Psych: Oriented x3, Normal Speech Gait: Steady ED Course And Treatment O2 Sat by Pulse Oximetry: 97 (RA) Pulse Ox Interpretation: Normal Medical Decision Making Medical Decision Making: Case discussed with residential direct support professional. residential support worker at bedside. Rubio removed. Patient tolerated procedure well. Patient given follow up instructions. Disposition - Disposition Referrals: Darrius Haskins MD [Staff Provider] - Disposition: HOME/ ROUTINE Disposition Time: 09:39 Condition: GOOD Additional Instructions: Follow up with the Dr. Glover within 1-2 days without fail. Return if worsened,. Instructions: Staple Removal Forms: [employer] (Nepalese) - Clinical Impression Clinical Impression: Removal of rubio, Visit for wound check - PA / WIRE CHIEF / Resident Statement MD/DO has reviewed & agrees with the documentation as recorded. - Scribe Statement The provider has reviewed the documentation as recorded by the Scribe Elizabeth Cook All medical record entries made by the Scribe were at my direction and personally dictated by me. I have reviewed the chart and agree that the record accurately reflects my personal performance of the history, physical exam, medical decision making, and the department course for this patient. I have also personally directed, reviewed, and agree with the discharge instructions and disposition.
== END 2018-08-08 09:49 | disposition home or self-care (01) ==
LOC: C.ER 08:50
DX: Z48.02 Encounter for removal of sutures (principal)